=== PATIENT | male | born 1930 | race Caucasian/White ===

== ENCOUNTER → 2016-10-25 | Outpatient (CLI) | payer MEDICARE ==
[~2016-10-25] MED LIST: ACET-1256 PO; AMIT25TA19 PO; AMT50 PO; ASPI-232 PO; ATEN-173 PO; BIOTPOW17 PO; CEFD300C2 PO; CLC/300 PO; DOCU100C31 PO; DUTACAP PO; FINA5TAB PO; FINA5TAB4 PO; FLM4 PO; GLC/500 PO; IBUP-1459 PO; ISOS30TA3 PO; LCTX PO; MULT-506 PO; OMEP20CA59 PO; OXGN; OXYC-57 PO; PHEN-775 PO; TNR25 PO; ZCRT/40 PO
[2016-10-25 13:08] LABS: ESTIMATED AVERAGE GLUCOSE 146 mg/dl; HA1C FLAG Normal (Normal)
[2016-10-25 13:20] LABS: BLOOD UREA NITROGEN 28 mg/dl (7-18); BUN/CREATININE RATIO 23.5 (10-20); CALCIUM 9.3 mg/dl (8.5-10.1); CARBON DIOXIDE 27 mmol/L (21-32); CHLORIDE 108 mmol/L (98-107); GLUCOSE 107 mg/dl (70-99); POTASSIUM 4.4 mmol/L (3.5-5.1); SODIUM 140 mmol/L (136-145)
== END | disposition home or self-care (01) ==
LOC: C.LAB1850 11:35
PROVIDERS: ATTEND Internal Medicine
DX: E11.9 Type 2 diabetes mellitus without complications (principal)

== ENCOUNTER → 2017-01-26 | Outpatient (CLI) | payer MEDICARE ==
[~2017-01-26] MED LIST changes: -ACET-1256 PO; -AMT50 PO; -ATEN-173 PO; -BIOTPOW17 PO; -CEFD300C2 PO; -DUTACAP PO; -FINA5TAB4 PO; -GLC/500 PO; -MULT-506 PO; -OXGN; -OXYC-57 PO; -PHEN-775 PO
[2017-01-26 14:42] LABS: HEMATOCRIT 43.3 % (42-52); MEAN CELL VOLUME 95.2 fL (80-100); MEAN CORPUSCULAR HEMOGLOBIN 30.3 pg (25-34); MEAN CORPUSCULAR HGB CONC 31.9 g/dl (32-36); MEAN PLATELET VOLUME 10.6 fL (7.4-10.4); PLATELET COUNT 221 K/uL (130-400); RED BLOOD COUNT 4.55 M/uL (4.7-6.1); WHITE BLOOD COUNT 6.16 K/uL (4.8-10.8)
[2017-01-26 15:12] LABS: ALT/SGPT 33 U/L (12-78); AST/SGOT 21 U/L (15-37); BLOOD UREA NITROGEN 28 mg/dl (7-18); BUN/CREATININE RATIO 23.7 (10-20); CALCIUM 9.2 mg/dl (8.5-10.1); CARBON DIOXIDE 27 mmol/L (21-32); CHLORIDE 109 mmol/L (98-107); GLUCOSE 102 mg/dl (70-99); GLUCOSE,FASTING 102 mg/dl (70-99); POTASSIUM 5.3 mmol/L (3.5-5.1); SODIUM 140 mmol/L (136-145)
[2017-01-26 15:23] LABS: CHOLESTEROL 164 mg/dl (0-200); CHOLESTEROL/HDL RATIO 3.5; HDL CHOLESTEROL 47 mg/dl; LDL CHOLESTEROL CALCULATED 97 mg/dl; TRIGLYCERIDES 98 mg/dl (0-150); VERY LOW DENSITY LIPOPROT CALC 20 mg/dl
[2017-01-27 07:56] LABS: ESTIMATED AVERAGE GLUCOSE 143 mg/dl; HA1C FLAG Normal (Normal)
== END | disposition home or self-care (01) ==
LOC: C.LAB 12:15
PROVIDERS: ATTEND Internal Medicine
DX: E11.40 Type 2 diabetes mellitus with diabetic neuropathy, unspecified (principal); I25.10 Atherosclerotic heart disease of native coronary artery without angina pectoris; M62.81 Muscle weakness (generalized); E78.5 Hyperlipidemia, unspecified; R31.0 Gross hematuria

== ENCOUNTER 2017-04-13 15:31 | Emergency (ER) | payer MEDICARE, OTHER ==
[~2017-04-13] VITALS: Ht 170.2 cm; Wt 63.0 kg
[2017-04-13 15:35] VITALS: TEMP 36.5; Ht 170.2 cm; Wt 63.0 kg
[2017-04-13 16:24] LABS: URINE APPEARANCE CLOUDY (CLEAR); URINE BILIRUBIN NEG (NEG); URINE COLOR YELLOW; URINE EPITHELIAL CELL AUTO >30 /lpf (0-5); URINE NITRITE POS (NEG); URINE PH 7.5 (4.5-7.5); URINE SPECIFIC GRAVITY 1.011 (1.000-1.030); UROBILINOGEN NEG (NEG); ZZURINE CULT IF INDIC CATH YES
[2017-04-13 16:26] LABS: MANUAL MICROSCOPIC REQUIRED? NO; REVIEW REQ? YES
[2017-04-13 16:27] LABS: SULFASALICYLIC ACID POS (NEG)
[2017-04-13] MEDS ORDERED: CEFDINIR 300 MG CAP PO STA (16:32)
[2017-04-13] MEDS ORDERED: CEFD300C2 PO (16:34)
--- NOTE | 2017-04-13 16:40 | EMERGENCY ROOM VISIT NOTE ---
History Report prepared by Rena: Monster Guerrero Under the Supervision of: Dr. Luke Martinez D.O. First contact with patient: 15:38 Chief Complaint: CATHETER REPLACEMENT Stated Complaint: CATHETER NEEDS REMOVED History of Present Illness The patient is a 86 year old male who presents to the Emergency Room with complaints of constant catheter problems beginning today. He has a suprapubic catheter in place. He states that he was supposed to have the catheter changed today, but his home health nurse was unable to remove the catheter entirely. The patient denies any chest pain, SOB, fevers, or chills. Source of History: patient Onset: Today Quality: other (catheter problems) Timing: constant Associated Symptoms: No fevers, No chills, No chest pain, No SOB Review of Systems See HPI for pertinent positives & negatives. A total of 10 systems reviewed and were otherwise negative. Past Medical & Surgical Medical Problems: (1) Abscess (2) CAD (coronary artery disease) (3) Chest pain (4) Diabetes (5) PNA (pneumonia) (6) PNA (pneumonia) (7) PNA (pneumonia) Family History No pertinent family history stated. Social History Smoking Status: Former Smoker Alcohol Use: none Drug Use: none Marital Status: Housing Status: lives with family Occupation Status: retired Current/Historical Medications Scheduled Amitriptyline Hcl (Elavil), 50 MG PO HS Aspirin (Aspir-81), 81 MG PO DAILY Atenolol (Tenormin), 25 MG PO QAM Cefdinir (Omnicef), 300 MG PO Q12H Isosorbide Mononitrate Ext Rel (Imdur Ext Rel), 30 MG PO QAM Metformin Hcl (Glucophage), 500 MG PO BID Omeprazole (Prilosec), 20 MG PO DAILY Allergies Coded Allergies: No Known Allergies (Unverified , 04/13/17) Physical Exam Vital Signs Date Time Temp Pulse Resp B/P (MAP) Pulse Ox O2 Delivery O2 Flow Rate FiO2 04/13/17 17:01 63 16 122/65 97 Room Air 04/13/17 15:35 36.5 92 20 125/76 99 Room Air Physical Exam GENERAL: Patient is awake, alert, and in no acute distress. Patient is resting comfortably and showing no signs of anxiety EYES: The conjunctivae are clear. The pupils are round and reactive. EARS, NOSE, MOUTH AND THROAT: The nose is without any evidence of any deformity. Mucous membranes are moist tongue is midline NECK: The neck is nontender and supple. RESPIRATORY: Normal respiratory effort is noted there is no evidence of wheezing rhonchi or rales CARDIOVASCULAR: Regular rate and rhythm noted there no murmurs rubs or gallops normal S1 normal S2 GASTROINTESTINAL: Mildly distended but soft. Suprapubic catheter in place. MUSCULOSKELETAL/EXTREMITIES: There is no evidence of gross deformity full range of motion is noted in the hips and shoulders SKIN: There is no obvious evidence of any rash. There are no petechiae, pallor or cyanosis noted. NEUROLOGIC: Patient is awake alert and oriented x3. Medical Decision & Procedures Laboratory Results Test 04/13/17 16:05 Urine Color YELLOW Urine Appearance CLOUDY (CLEAR) Urine pH 7.5 (4.5-7.5) Urine Specific [place] 1.011 (1.000-1.030) Urine Protein 1+ (NEG) Urine Glucose (UA) NEG (NEG) Urine Ketones NEG (NEG) Urine Occult Blood 3+ (NEG) Urine Nitrite POS (NEG) Urine Bilirubin NEG (NEG) Urine Urobilinogen NEG (NEG) Urine Leukocyte Esterase LARGE (NEG) Urine WBC (Auto) >30 /hpf (0-5) Urine RBC (Auto) 10-30 /hpf (0-4) Urine Hyaline Casts (Auto) 1-5 /lpf (0-5) Urine Epithelial Cells (Auto) >30 /lpf (0-5) Urine Bacteria (Auto) 4+ (NEG) Urine Pathogenic Casts /lpf (0) Laboratory results per my review. Medications Administered Medications (Trade) Dose Ordered Sig/Taylor Route Start Time Stop Time Status Last Admin Dose Admin Cefdinir (Omnicef Cap) 300 mg ONE STAT PO 04/13/17 16:32 04/13/17 16:33 DC 04/13/17 17:00 300 MG ED Course 1544: The patient was evaluated in room B3B. A complete history and physical examination were performed. 163: Ordered Omnicef Susp 300 mg PO. 1635: Upon reevaluation, the patient is resting comfortably. I discussed the results and treatment plan with him. He verbalized agreement of the treatment plan. The patient was discharged home. Medical Decision Differential diagnosis: Etiologies such as renal colic, appendicitis, diverticulitis, mesenteric ischemia, aortic pathology, infections, inflammatory bowel disease, PUD, biliary pathology, UTI, as well as others were entertained. Nursing notes reviewed. The patient is an 86-year-old male who presented to the emergency department for an evaluation of malfunctioning suprapubic [place] catheter. The patient has to catheter changed monthly but the visiting nurse was unable to change the catheter today. The balloon appeared to be empty but there were significant increase in his on the end of the [place]. Eventually I was able to remove the [place] catheter and a new catheter was replaced but the urine was cloudy in appearance. This was sent for urinalysis and culture. The patient was started on Omnicef. I discussed the patient's laboratory results with him. He has a follow-up appointment with Dr. Lion next week. He was encouraged to keep this appointment. I reviewed the patient's previous cultures however he has not had a recent urine culture that grew out definite organism the last few years. He was encouraged to drink plenty clear liquids and return to the emergency apartment immediately if symptoms change worsen or the need arises. Medication Reconcilliation Current Medication List: was personally reviewed by me Blood Pressure Screening Patient's blood pressure: Normal blood pressure Blood pressure disposition: Did not require urgent referral Impression Primary Impression: Suprapubic catheter Additional Impression: UTI (urinary tract infection) Scribe Attestation The scribe's documentation has been prepared under my direction and personally reviewed by me in its entirety. I confirm that the note above accurately reflects all work, treatment, procedures, and medical decision making performed by me. Departure Information Dispostion Home / Self-Care Prescriptions Cefdinir (OMNICEF) 300 Mg Cap 300 MG PO Q12H, #14 CAP Prov: Luke Martinez, DO 04/13/17 Referrals Luke Javier M.D. (PCP) Forms HOME CARE DOCUMENTATION FORM, IMPORTANT VISIT INFORMATION Patient Instructions Catheter Suprapubic Care Josh, My [facility], Urinary Tract Infecs Men Additional Instructions Continue all medications as prescribed. Call your family to schedule a follow-up appointment as soon as possible. Return to the emergency department immediately if symptoms change worsen or if the need arises. Problem Qualifiers Additional Impression: UTI (urinary tract infection) Urinary tract infection type: catheter-associated UTI Indwelling urinary catheter type: indwelling urethral catheter Encounter type: initial encounter Qualified Codes: T83.511A - Infection and inflammatory reaction due to indwelling urethral catheter, initial encounter; N39.0 - Urinary tract infection, site not specified
[2017-04-13] MEDS ORDERED: AMT50 PO (16:49)
[2017-04-13] MEDS ORDERED: GLC/500 PO (16:49)
[2017-04-13] MEDS ORDERED: ATEN-173 PO (16:49)
[2017-04-13 17:01] VITALS: BP 122/65; PULSE 63; O2SAT 97
== END 2017-04-13 17:02 | disposition home or self-care (01) ==
LOC: C.EDB 15:34
DX: T83.511A Infection and inflammatory reaction due to indwelling urethral catheter, initial encounter (principal); N39.0 Urinary tract infection, site not specified; I25.10 Atherosclerotic heart disease of native coronary artery without angina pectoris; E11.9 Type 2 diabetes mellitus without complications; Z79.82 Long term (current) use of aspirin; Z79.84 Long term (current) use of oral hypoglycemic drugs; Y84.6 Urinary catheterization as the cause of abnormal reaction of the patient, or of later complication, without mention of misadventure at the time of the procedure; Z87.891 Personal history of nicotine dependence

== ENCOUNTER → 2017-05-09 | Outpatient (CLI) | payer OTHER ==
[~2017-05-09] MED LIST changes: +ACET-1256 PO; -AMIT25TA19 PO; +AMT50 PO; +ATEN-173 PO; +BIOTPOW17 PO; -CLC/300 PO; -DOCU100C31 PO; +DUTACAP PO; -FINA5TAB PO; +FINA5TAB4 PO; -FLM4 PO; +GLC/500 PO; -IBUP-1459 PO; -LCTX PO; +MULT-506 PO; +OXGN; -TNR25 PO; -ZCRT/40 PO
== END | disposition home or self-care (01) ==
LOC: C.LABSPEC 17:27
PROVIDERS: ATTEND Urology
DX: N39.0 Urinary tract infection, site not specified (principal)

== ENCOUNTER → 2017-05-21 | Day surgery (SDC) | payer OTHER ==
[2017-05-09 13:52] VITALS: BMI 23.0
--- NOTE | 2017-05-09 14:30 | PAT Medication Instructions ---
Service Date May 09, 2017. Current Home Medication List Acetaminophen (Tylenol), 500 MG PO PRN Amitriptyline Hcl (Elavil), 50 MG PO HS Aspirin (Aspir-81), 81 MG PO QPM Atenolol (Tenormin), 25 MG PO QAM Dutasteride-Tamsulosin Hcl (Jennifer), 1 CAP PO HS Finasteride (Proscar), 5 MG PO QPM Home O2 Therapy (Oxygen), 2 LITERS NA PRN Isosorbide Mononitrate Ext Rel (Imdur Ext Rel), 30 MG PO QAM Metformin Hcl (Glucophage), 500 MG PO BID Multivitamin (Multivitamin), 1 TAB PO HS Omeprazole (Prilosec), 20 MG PO HS [Biotin], 1 TAB PO QAM Medication Instructions For Your Scheduled Surgery -Follow your surgeon's instructins for: Aspirin (Aspir-81), 81 MG PO QPM -Continue as directed: Home O2 Therapy (Oxygen), 2 LITERS NA PRN - Hold the following medications 48 hours prior to surgery: Metformin Hcl (Glucophage), 500 MG PO BID - Hold the following medications the morning of surgery: [Biotin], 1 TAB PO QAM - Take the following medications the morning of surgery with a sip of water: Isosorbide Mononitrate Ext Rel (Imdur Ext Rel), 30 MG PO QAM Atenolol (Tenormin), 25 MG PO QAM Acetaminophen (Tylenol), 500 MG PO PRN (if needed, can be taken up to four hours before surgery) - Take the following medications as scheduled the night before surgery: Multivitamin (Multivitamin), 1 TAB PO HS Omeprazole (Prilosec), 20 MG PO HS Finasteride (Proscar), 5 MG PO QPM Dutasteride-Tamsulosin Hcl (Jnenifer), 1 CAP PO HS Amitriptyline Hcl (Elavil), 50 MG PO HS Acetaminophen (Tylenol), 500 MG PO PRN (if needed) If you have any questions please call us at [phone] or [phone] or [phone]
[2017-05-09 15:40] LABS: BASO % 0.9 %; BASO ABS # 0.05 K/uL (0-0.2); COMPLETE YES; HEMATOCRIT 38.3 % (42-52); IG% 0.4 %; LYMPH % 24.1 %; LYMPH ABS # 1.34 K/uL (1.2-3.4); MEAN CELL VOLUME 96.2 fL (80-100); MEAN CORPUSCULAR HEMOGLOBIN 31.7 pg (25-34); MEAN CORPUSCULAR HGB CONC 32.9 g/dl (32-36); MEAN PLATELET VOLUME 10.1 fL (7.4-10.4); MONO % 8.3 %; NEUT % 61.3 %; PLATELET COUNT 184 K/uL (130-400); RED BLOOD COUNT 3.98 M/uL (4.7-6.1); WHITE BLOOD COUNT 5.56 K/uL (4.8-10.8)
--- NOTE | 2017-05-09 15:47 | DIAGNOSTIC IMAGING REPORT ---
CHEST 2 VIEWS ROUTINE CLINICAL HISTORY: Preoperative chest COMPARISON STUDY: 09/30/2013 FINDINGS: The heart is normal in size. There is a large retrocardiac opacity containing air and fluid. This is consistent with a hiatal hernia.[ There is no focal pulmonary consolidation. There is no failure. There are no pleural effusions. IMPRESSION: Large hiatal hernia. No acute findings. Electronically signed by: Samuel Webb M.D. 05/09/2017 3:45 PM Dictated Date/Time: 05/09/2017 3:44 PM
[2017-05-09 15:52] LABS: BUN/CREATININE RATIO 21.4 (10-20); CALCIUM 9.2 mg/dl (8.5-10.1); CREATININE 1.07 mg/dl (0.60-1.40)
[2017-05-09 15:56] LABS: PROSTATE SPECIFIC ANTIGEN 5.26 ng/ml (0.000-4.000)
[2017-05-09 16:06] LABS: URINE APPEARANCE TURBID (CLEAR); URINE BILIRUBIN NEG (NEG); URINE COLOR YELLOW; URINE EPITHELIAL CELL AUTO 20-30 /lpf (0-5); URINE NITRITE NEG (NEG); URINE PH 6.5 (4.5-7.5); UROBILINOGEN NEG (NEG)
[2017-05-09 16:11] LABS: MANUAL MICROSCOPIC REQUIRED? NO; REVIEW REQ? NO
[~2017-05-21] VITALS: Ht 165.1 cm; Wt 62.7 kg
[~2017-05-21] MED LIST changes: +ATROPINE SULFATE 0.1 MG/ML 5ML SYR IV PRN; +CIPROFLOXACIN / D5W 400 MG IV SCH; +DEXAMETHASONE SOD INJ 4 MG/ML VIAL ONE; +EpHEDrine SULFATE 50MG/5ML SYR ONE; +EpHEDrine SULFATE INJ 50 MG/ML AMP IV PRN; +FENTANYL CITRATE INJ 50 MCG/1 ML 2 ML VIAL IV PRN; +FENTANYL CITRATE INJ 50 MCG/1 ML 2 ML VIAL ONE; +GENTAMICIN INJ 120 MG in DEXTROSE 5% 100ML 100 ML IV SCH; +HYDROmorphone INJ 1 MG/ML SYR IV PRN; +LABETALOL HCL IV 5 MG/ML 20ML IV PRN; +LACTATED RINGER'S 1000ML 1,000 ML IV SCH; +LIDOCAINE HCL 2% 2 ML VIAL (20MG/ML) ONE; +MEPERIDINE HCL 25 MG/ML CARP IV PRN; +MIDAZOLAM HCL 1 MG/ML 2ML VIAL ONE; +NURSING VERBAL MED ORDER ONE; +ONDANSETRON INJ 2 MG/ML 2 ML VIAL IV PRN; +ONDANSETRON INJ 2 MG/ML 2 ML VIAL ONE; +OXYC-57 PO; +OXYCODONE/ACETAMINOPHEN 5-325 TAB PO PRN; +PHEN-775 PO; +PHENYLEPHRINE 100MCG/ML 5ML SYR ONE; +PROPOFOL IV EMULSION 10 MG/ML 20 ML VIAL IV ONE
[2017-05-21 07:35] VITALS: BP 153/72; PULSE 60; TEMP 36.5; O2SAT 98; Ht 165.1 cm; Wt 62.7 kg
--- NOTE | 2017-05-21 08:31 | History & Physical Bridge Note ---
H&P Re-Evaluation Bridge Note: I have examined the patient, reviewed the History & Physical and in the interval since the performance of the History & Physical I have noted the following changes of clinical significance: No changes noted
--- NOTE | 2017-05-21 10:11 | Discharge Instructions ---
Discharge Instructions Date of Service May 21, 2017. Admission Reason for Admission: Urinary Retention Discharge Discharge Diagnosis / Problem: BPH, retention, indwelling SPT Discharge Goals Goal(s): Improve function, Therapeutic intervention Activity Recommendations Activity Limitations: as noted below Lifting Limitations: no more than 25 pounds, gradually increase as tolerated Exercise/Sports Limitations: rest today, gradually increase as tolerated May Resume Sexual Activity: when tolerated Shower/Bathe: no limitations Driving or Machine Use: resume 1 day after discharge . Instructions / Follow-Up Instructions / Follow-Up Suprapubic tube to gravity drainage x 2 days, then OK to cap. Follow-up in office as planned for removal of suprapubic tube. Current Hospital Diet Patient's current hospital diet: Discharge Diet Recommended Diet: Regular Diet (good fluid intake) Procedures Procedures Performed: Cystoscopy; Greenlight Transurethral vaporization of Prostate; suprapubic tube exchange; extraction of foreign body; laser cystolithopaxy Pending Studies Studies pending at discharge: no Medical Emergencies . Who to Call and When: Medical Emergencies: If at any time you feel your situation is an emergency, please call 911 immediately. . Non-Emergent Contact Non-Emergency issues call your: Urologist Call Non-Emergent contact if: you have a fever, temperature is above 101, your pain is not controlled, your pain is worsening, your pain is unusual for you, your pain is concerning you, you have any medication questions . . "Provider Documentation" section prepared by Maciel Lion. . VTE Core Measure Inpt VTE Proph given/why not?: SCD's [place] Drug Monitoring Program Search Results: patient reviewed within database, no issues identified
--- NOTE | 2017-05-21 10:13 | [facility] Post Operative Brief Note ---
Immediate Operative Summary Operative Date May 21, 2017. Pre-Operative Diagnosis Benign Prostactic Hyperplasia Post-Operative Diagnosis Benign Prostactic Hyperplasia, Bladder Stone, Indwelling sepulveda fragment Procedure(s) Performed Cystoscopy; Greenlight Transurethral vaporization of Prostate; suprapubic tube exchange; extraction of foreign body; laser cystolithopaxy Surgeon Dr. Kamar Lion Transplant Case Manager Surgeon(s) NA Estimated Blood Loss 10mL Findings Thick bladder stone with sepulveda fragment at center, R bladder diverticulum, open fossa after GLTURP with excellent hemostasis. Specimens A: Foreign body Drains [address], 10 cc H2O Anesthesia GALMA Complication(s) None Disposition Recovery Room / PACU
--- NOTE | 2017-05-21 10:20 | [facility] Operative Report ---
Operative Report Operative Date May 21, 2017. Pre-Operative Diagnosis Benign Prostactic Hyperplasia Post-Operative Diagnosis Benign Prostactic Hyperplasia, Bladder Stone, Indwelling sepulveda fragment Procedure(s) Performed Cystoscopy; Greenlight Transurethral vaporization of Prostate; suprapubic tube exchange; extraction of foreign body; laser cystolithopaxy Surgeon Dr. Kamar Lion Medical Screener Surgeon(s) NA Estimated Blood Loss 10mL Findings Thick bladder stone with sepulveda fragment at center, R bladder diverticulum, open fossa after GLTURP for 55K J with excellent hemostasis. Specimens A: Foreign body Drains [address], 10 cc H2O Anesthesia GALMA Complication(s) None Disposition Recovery Room / PACU Indications 86-year-old male with an indwelling SP tube for over a year is here today for greenlight TURP to see if this can't be removed. He has suffered with recurrent UTIs and suprapubic tube malfunction like to have this out. Please see H&P for further details. He is being treated preoperatively with ciprofloxacin for positive urine culture is double covered intravenously today with ciprofloxacin and gentamicin. SCDs used for DVT prophylaxis. Description of Procedure Patient was properly identified and brought into the operating room after identification of appropriate consent of the chart. General anesthesia with laryngeal mask was initiated and patient was prepped and draped in the standard fashion for this procedure. Full timeout procedure was followed. Greenlight laser resectoscope was passed into the bladder under direct visualization bladder was surveyed in its entirety. This demonstrated a right-sided bladder diverticulum and pieces of stone material which had apparently formed on the Sepulveda balloon previously free-floating within the bladder. However, not appreciated in the office cystoscopy, 1 larger piece of stone which was thicker and not amenable to flushing out of the scope was appreciated. Seen to the patient's suprapubic tube had not been recently changed a fresh 16 [place] tube was placed into the bladder easily without resistance of 10 mL of sterile water in the balloon. This was used to drain the bladder throughout the case. Good position through the existing tract was appreciated at the time of intraoperative bladder evaluation. Using a side fire greenlight laser resectoscope circumferential vaporization of the prostate tissue was performed. Evidence of prior TURP at the level of the bladder neck was appreciated. Ureteral orifices were not well identified and the bladder neck was noted to be open so no incisions were made at the 5 and 7 o'clock position. The bladder neck was however split in the midline at the 6 o'clock position to allow for this to be further opened. Care was taken avoid any dissection distal to the verumontanum. After this was complete the prostate was noted to be well opened with excellent hemostasis. A 22 [place] cystoscope was reintroduced into the bladder and stone fragments were broken into smaller pieces using dusting settings on a 400 laser fiber. Within the larger piece became clear that a fragment from the tip of the previous suprapubic tube at the time of exchange was present. Suprapubic tube that was placed at the time of surgery today was noted to be intact as was the tube that was removed. Smaller fragments of stone were irrigated free using a Rickie syringe until no significant fragments remained. Cystoscope was removed and suprapubic tube was placed to gravity drainage. Anesthesia was a first and patient was transferred to the recovery room in stable condition. Follow-up care: Patient is to complete his course of ciprofloxacin. He is provided with a prescription for Pyridium and Percocet for postoperative analgesia. Postoperative appointment for suprapubic tube removal was confirmed. Patient is to resume clamping his suprapubic tube as is his current routine prior to follow-up in the office as an outpatient trial of void. I attest to the content of the Intraoperative Record and any orders documented therein. Any exceptions are noted below.
--- NOTE | 2017-05-21 10:34 | Anesthesiology Progress Note ---
Anesthesia Post Op Note Date & Time May 21, 2017 at 10:34 Vital Signs Pain Intensity: 0 Vital Signs Past 12 Hours Date Time Temp Pulse Resp B/P (MAP) Pulse Ox O2 Delivery O2 Flow Rate FiO2 05/21/17 10:25 65 16 172/78 98 Oxymask 3 05/21/17 10:15 67 16 186/87 100 Oxymask 5 05/21/17 10:06 36.0 65 16 175/88 98 Oxymask 10 05/21/17 07:35 36.5 60 18 153/72 (99) 98 Room Air Notes Mental Status: alert / awake / arousable, participated in evaluation Pt Amnestic to Procedure: Yes Nausea / Vomiting: adequately controlled Pain: adequately controlled Airway Patency, RR, SpO2: stable & adequate BP & HR: stable & adequate Hydration State: stable & adequate Anesthetic Complications: no major complications apparent
[2017-05-21 11:05] VITALS: BP 153/73; PULSE 70; TEMP 36.1; O2SAT 97
[2017-05-21 11:35] VITALS: BP 144/63; PULSE 77; TEMP 36.1; O2SAT 97
[2017-05-21 12:05] VITALS: BP 143/65; PULSE 77; TEMP 36.1; O2SAT 97
== END | disposition home or self-care (01) ==
LOC: C.ACU 07:01
PROVIDERS: ATTEND Urology
DX: N40.1 Benign prostatic hyperplasia with lower urinary tract symptoms (principal); N21.0 Calculus in bladder; K57.92 Diverticulitis of intestine, part unspecified, without perforation or abscess without bleeding; R91.8 Other nonspecific abnormal finding of lung field; I35.1 Nonrheumatic aortic (valve) insufficiency; K22.70 Barrett's esophagus without dysplasia; I25.10 Atherosclerotic heart disease of native coronary artery without angina pectoris; E11.40 Type 2 diabetes mellitus with diabetic neuropathy, unspecified; E78.5 Hyperlipidemia, unspecified; E87.5 Hyperkalemia; I34.0 Nonrheumatic mitral (valve) insufficiency; N39.0 Urinary tract infection, site not specified; Z79.899 Other long term (current) drug therapy

== ENCOUNTER → 2017-08-15 | Outpatient (CLI) | payer OTHER ==
[~2017-08-15] MED LIST changes: -ATROPINE SULFATE 0.1 MG/ML 5ML SYR IV PRN; -CIPROFLOXACIN / D5W 400 MG IV SCH; -DEXAMETHASONE SOD INJ 4 MG/ML VIAL ONE; -EpHEDrine SULFATE 50MG/5ML SYR ONE; -EpHEDrine SULFATE INJ 50 MG/ML AMP IV PRN; -FENTANYL CITRATE INJ 50 MCG/1 ML 2 ML VIAL IV PRN; -FENTANYL CITRATE INJ 50 MCG/1 ML 2 ML VIAL ONE; -GENTAMICIN INJ 120 MG in DEXTROSE 5% 100ML 100 ML IV SCH; -HYDROmorphone INJ 1 MG/ML SYR IV PRN; -LABETALOL HCL IV 5 MG/ML 20ML IV PRN; -LACTATED RINGER'S 1000ML 1,000 ML IV SCH; -LIDOCAINE HCL 2% 2 ML VIAL (20MG/ML) ONE; -MEPERIDINE HCL 25 MG/ML CARP IV PRN; -MIDAZOLAM HCL 1 MG/ML 2ML VIAL ONE; -NURSING VERBAL MED ORDER ONE; -ONDANSETRON INJ 2 MG/ML 2 ML VIAL IV PRN; -ONDANSETRON INJ 2 MG/ML 2 ML VIAL ONE; -OXYCODONE/ACETAMINOPHEN 5-325 TAB PO PRN; -PHEN-775 PO; -PHENYLEPHRINE 100MCG/ML 5ML SYR ONE; -PROPOFOL IV EMULSION 10 MG/ML 20 ML VIAL IV ONE
== END | disposition home or self-care (01) ==
LOC: C.LABSPEC 17:17
PROVIDERS: ATTEND Urology
DX: N40.0 Benign prostatic hyperplasia without lower urinary tract symptoms (principal); N21.0 Calculus in bladder

== ENCOUNTER 2017-10-02 10:54 | Inpatient (IN) | payer OTHER ==
[~2017-10-02] VITALS: Ht 162.6 cm; Wt 61.1 kg
[2017-10-02 15:50] VITALS: BP 120/55; PULSE 72; TEMP 36.6; O2SAT 94
[2017-10-02] MEDS ORDERED: DEXTROSE 50% 50 ML SYR IV PRN (16:00)
[2017-10-02] MEDS ORDERED: HEPARIN SOD 5000 UNIT/0.5 ML CARP SQ SCH (16:00)
[2017-10-02] MEDS ORDERED: PIPERACILL/TAZOBAC CONSULT ACTIVE PRN (16:00)
[2017-10-02] MEDS ORDERED: VANCOMYCIN CONSULT ACTIVE PRN (16:00)
[2017-10-02] MEDS ORDERED: OXYCODONE/ACETAMINOPHEN 5-325 TAB PO PRN (16:00)
[2017-10-02] MEDS ORDERED: GLUCAGON FOR INJ 1 MG VIAL SQ PRN (16:00)
[2017-10-02] MEDS ORDERED: GLUCOSE 10 TABS/TUBE PO PRN (16:00)
[2017-10-02] MEDS ORDERED: ACETAMINOPHEN 325 MG TAB PO PRN (16:00)
[2017-10-02] MEDS ORDERED: GLUCOSE 40% GEL 15 GM TUBE PO PRN (16:00)
[2017-10-02] MEDS ORDERED: ONDANSETRON INJ 2 MG/ML 2 ML VIAL IV PRN (16:00)
[2017-10-02] MEDS ORDERED: PATIENT'S HEIGHT AND/OR WEIGHT NEEDED SCH ×2 (16:15→18:45)
[2017-10-02] MEDS ORDERED: PIPERACILL/TAZOBAC IV 3.375 GM in DEXTROSE 5% 100ML 100 ML IV ONE (16:30)
[2017-10-02] MEDS: INSULIN ASPART 100 UNITS/ML 3 ML PEN SC SCH ×3 (16:30→20:22)
[2017-10-02 16:46] LABS: INR 1.1 (0.9-1.1)
--- NOTE | 2017-10-02 17:03 | History and Physical ---
History & Physical Date & Time of Service: Oct 02, 2017 at 16:51 Chief Complaint: Uti, Abscess Primary Care Physician: Luke Javier M.D. History of Present Illness Source: patient 87 y/o M who was transferred here from [facility] for UTI and abscess. Pt had a suprapubic catheter in place for over a year due to urinary retention issues. Dr. Lion d/c'd this about 3 weeks ago. Pt felt he was doing pretty well with this. He was able to urinate regularly, although he did have a bit of retention s/p void that would usually require a second void shortly after. He was doing so well that he next f/u appt was supposed to be in November. Yesterday was a usual day for him. He went to bed but then woke up around 1am with lower abd pain. This persisted so he went to the ED at [facility] where a CT AP revealed that pt has an abscess along the suprapubic catheter tract and UA suggested UTI. Pt has no concerns otherwise. He has been tolerating PO without issue. Pt denies fever, SOB, chest pain, n/v/c/d, LE pain or swelling. Pt still has some abd pain, but feels it is better s/p abx. Pt does say that he takes prophylactic abx. Past Medical/Surgical History Medical Problems: (1) Abscess (2) BROKEN PROSTHETIC JOINT IMPLANT (3) CAD (coronary artery disease) (4) Chest pain (5) Diabetes (6) PNA (pneumonia) (7) PNA (pneumonia) (8) PNA (pneumonia) (9) Skin abscess (10) Suprapubic catheter (11) UTI (urinary tract infection) (12) UTI (urinary tract infection) HTN Hx of cath, no stent placed s/p KS HTN GERD Hyperlipidemia Family History CAD, HTN, DM Social History Smoking Status: Former Smoker (quit at 57 y/o) Alcohol Use: occasionally (rare) Drug Use: none Marital Status: Housing status: lives with family Occupational Status: retired Immunizations History of Influenza Vaccine: Yes History of Tetanus Vaccine?: Yes History of Pneumococcal: Yes History of Hepatitis B Vaccine: No Allergies Coded Allergies: No Known Allergies (Verified , 05/21/17) Home Medications Scheduled Acetaminophen (Tylenol), 500 MG PO PRN Amitriptyline Hcl (Elavil), 50 MG PO HS Aspirin (Aspir-81), 81 MG PO QPM Atenolol (Tenormin), 25 MG PO QAM Dutasteride-Tamsulosin Hcl (Jennifer), 1 CAP PO HS Finasteride (Proscar), 5 MG PO QPM Home O2 Therapy (Oxygen), 2 LITERS NA PRN Isosorbide Mononitrate Ext Rel (Imdur Ext Rel), 30 MG PO QAM Metformin Hcl (Glucophage), 500 MG PO BID Multivitamin (Multivitamin), 1 TAB PO HS Omeprazole (Prilosec), 20 MG PO HS [Biotin], 1 TAB PO QAM Scheduled PRN Oxycodone/Acetaminophen 5MG/325MG (Percocet 5MG/325MG), 1 TABLET PO Q4H PRN for Pain Review of Systems Pertinent positives and negatives reviewed in HPI--all others negative Physical Exam Vital Signs Date Time Temp Pulse Resp B/P (MAP) Pulse Ox O2 Delivery O2 Flow Rate FiO2 10/02/17 15:50 36.6 72 20 120/55 (76) 94 Room Air General Appearance: WD/WN, no apparent distress Head: normocephalic, atraumatic Eyes: normal inspection, sclerae normal Respiratory/Chest: normal breath sounds, no respiratory distress Cardiovascular: regular rate, rhythm, no edema Abdomen/GI: soft, + tenderness (lower abd, mild) Extremities/Musculoskelatal: no calf tenderness, no pedal edema Neurologic/Psych: alert, normal mood/affect, oriented x 3 Skin: normal color, warm/dry Diagnostics Laboratory Results Results Past 24 Hours Test 10/02/17 16:25 10/02/17 16:33 Range/Units Prothrombin Time 11.2 9.0-12.0 SECONDS Prothromb Time International Ratio 1.1 0.9-1.1 Bedside Glucose 119 70-99 mg/dl Diagnostic Radiology CT AP as OSH: abscess in suprapubic catheter tract Large hiatal hernia Impression Assessment and Plan 87 y/o M who was transferred here from [facility] on 10/02 for UTI and abscess along suprapubic catheter tract UTI/abscess along suprapubic catheter tract: noted on CT AP from OSH Started on vanco/zosyn Urology c/s pending Urine cx pending Holding aspirin for possible drainage (last dose was PM 10/01) BPH: bladder scans PRN DM: continue home meds HTN/CAD: holding aspirin 81mg as above continue home meds otherwise Other: Full code, is uncertain if he would like prolonged mechanical life support and would defer to his DM diet SCDs for DVT proph given possible procedure Resuscitation Status VTE Prophylaxis Will order VTE Prophylaxis: Yes
--- NOTE | 2017-10-02 17:27 | Pharmacy Progress Note ---
Pharmacy Abx Initial Consult Date of Service Oct 02, 2017. Pharmacy Dosing Scope Date of Consult: 10/02/17 Consultation requested by: Dr. Talbert Pharmacy is consulted to initiate Vancomycin and Zosyn IV dosing therapy, order appropriate labs and adjust drug dose/frequency. Objective Vital Signs (Past 12Hrs) Vital Signs Past 12 Hours Date Time Temp Pulse Resp B/P (MAP) Pulse Ox O2 Delivery O2 Flow Rate FiO2 10/02/17 15:50 36.6 72 20 120/55 (76) 94 Room Air Assessment & Plan Assessment 87 year old male transferred from [facility] with complicated UTI and abscess of the suprapubic catheter tract. Patient has a history of urinary retention and previously had a catheter in place for over a year. Past urine cultures have grown the following organisms: * E.faecalis - gurrola-sensitive (08/15/17) * methicillin resistant coag neg staph (08/15/17) * E.coli and klebsiella oxytoca (04/2017) Plan Vancomycin IV * Loading dose: 1500 mg (25 mg/kg) * Maintenance dose: 1000 mg IV (16.4 mg/kg) every 24 hours * Goal trough level : 15-20 mcg/mL, pending sensitivities * Trough level ordered for 10/05 Piperacillin/tazobactam * 3.375 g bolus administered over 30 minutes, then 3.375 g IV extended infusion every 8 hours for CrCl greater than 20 mL/min Pharmacy will continue to follow and will adjust dose/frequency as necessary. Thank you.
[2017-10-02 19:38] VITALS: BP 120/55; PULSE 72; TEMP 36.6; Ht 162.6 cm; Wt 61.1 kg
[2017-10-02] MEDS ORDERED: VANCOMYCIN IV 1,500 MG in SODIUM CHLORIDE 0.9% 500ML 500 ML IV ONE (20:00)
[2017-10-02] MEDS: AMITRIPTYLINE HCL 50 MG TAB PO SCH (20:22)
[2017-10-02] MEDS: TAMSULOSIN HCL 0.4 MG CAP PO SCH (20:22)
[2017-10-02] MEDS: PANTOprazole SOD 40 MG TAB PO SCH (20:22)
[2017-10-02] MEDS: FINASTERIDE 5 MG TAB PO SCH (20:22)
[2017-10-02] MEDS ORDERED: ASPIRIN 81 MG ECTAB PO SCH (21:00)
[2017-10-02] MEDS: PIPERACILL/TAZOBAC IV 3.375 GM in SODIUM CHLORIDE 0.9% 100ML 100 ML IV SCH (21:21)
[2017-10-02] MEDS ORDERED: PIPERACILL/TAZOBAC IV 3.375 GM in DEXTROSE 5% 100ML 100 ML IV SCH (22:00)
[2017-10-02 22:39] VITALS: BP 129/61; PULSE 73; TEMP 36.6; O2SAT 92
[2017-10-03] MEDS: PIPERACILL/TAZOBAC IV 3.375 GM in SODIUM CHLORIDE 0.9% 100ML 100 ML IV SCH ×3 (05:51→22:56)
[2017-10-03 06:07] LABS: BASO % 0.3 %; BASO ABS # 0.02 K/uL (0-0.2); EOS % 2.8 %; EOS ABS # 0.19 K/uL (0-0.5); HEMATOCRIT 36.6 % (42-52); HEMOGLOBIN 12.4 g/dL (14.0-18.0); IG# 0.01 K/uL (0.00-0.02); LYMPH % 16.9 %; LYMPH ABS # 1.15 K/uL (1.2-3.4); MEAN CELL VOLUME 95.1 fL (80-100); MEAN CORPUSCULAR HEMOGLOBIN 32.2 pg (25-34); MEAN CORPUSCULAR HGB CONC 33.9 g/dl (32-36); MEAN PLATELET VOLUME 10.1 fL (7.4-10.4); MONO % 9.6 %; MONO ABS # 0.65 K/uL (0.11-0.59); NEUT % 70.3 %; NEUT ABS # 4.78 K/uL (1.4-6.5); PLATELET COUNT 173 K/uL (130-400); RED CELL DISTRIBUTION WIDTH CV 14.7 % (11.5-14.5); RED CELL DISTRIBUTION WIDTH SD 50.5 fL (36.4-46.3)
[2017-10-03 06:32] LABS: CALCIUM 8.5 mg/dl (8.5-10.1); CREATININE 1.41 mg/dl (0.60-1.40); POTASSIUM 4.1 mmol/L (3.5-5.1)
[2017-10-03 07:14] VITALS: BP 162/79; PULSE 66; TEMP 36.4; O2SAT 93
[2017-10-03] MEDS ORDERED: VANCOMYCIN TROUGH ONE ×2 (07:30→13:30)
[2017-10-03 08:00] VITALS: O2SAT 93
[2017-10-03] MEDS: ISOSORBIDE MONONITRATE 30 MG TABCR PO SCH (08:03)
[2017-10-03] MEDS: INSULIN ASPART 100 UNITS/ML 3 ML PEN SC SCH ×4 (08:29→20:17)
[2017-10-03] MEDS ORDERED: BISACODYL 10 MG SUPP PR PRN (08:45)
--- NOTE | 2017-10-03 08:45 | Urology Consultation ---
History General Date of Service: Oct 03, 2017. Chief Complaint: Lower abdominal pain, history of BPH Primary Care Physician: Luke Javier M.D. Pt seen a urologist before?: Yes If yes, why?: History of urinary retention and suprapubic tube History of Present Illness 87-year-old male, well-known to myself was in his normal state of health since I have last seen him in the office in July 2017 until yesterday when he developed lower abdominal pain, bothersome which kept him awake at night. Patient describes the pain as a need to defecate but was unable to do so and presented to the emergency room at his 's behest for further evaluation. CT scan of the abdomen and pelvis was done at that time images which are reviewed in the PACS and reviewed personally. This demonstrates a quite impressive hiatal hernia involving the majority of the stomach, the pancreas and the vasculature of the spleen. In the lower abdomen and the cause of the patient's transferred to our facility is a question of an abscess in the space of Retzius with air being present. No clear fluid levels are present. Patient denies fevers, chills, nausea or vomiting prior to his admission. His lower abdominal pain has since improved and he feels that he is return to baseline. His appetite is currently excellent. He has still not moved his bowels. He notes that his voiding was excellent with no hesitancy of stream, foul-smelling urine or hematuria. His suprapubic tube was removed in July [address] for more than a year. This was unable to due to the fact that he underwent a TURP and is able to void adequately. He has been treated for a couple of urinary tract infections as an outpatient, relatively asymptomatic by our service. Urology consultation is sought out to assist with the patient's care. He denies drainage from or redness at his suprapubic site or air within the urinary tract. Imaging Imaging: CT (Scanned into PACS, images personally reviewed) Laboratory Last 24 Hours Test 10/02/17 16:25 10/02/17 16:33 10/02/17 19:45 10/03/17 05:33 Prothrombin Time 11.2 SECONDS Prothromb Time International Ratio 1.1 Creatinine 1.10 mg/dl 1.41 mg/dl Estimated GFR () 69.6 51.5 Estimated GFR (Non- 60.0 44.5 Bedside Glucose 119 mg/dl 105 mg/dl White Blood Count 6.80 K/uL Red Blood Count 3.85 M/uL Hemoglobin 12.4 g/dL Hematocrit 36.6 % Mean Corpuscular Volume 95.1 fL Mean Corpuscular Hemoglobin 32.2 pg Mean Corpuscular Hemoglobin Concent 33.9 g/dl Platelet Count 173 K/uL Mean Platelet Volume 10.1 fL Neutrophils (%) (Auto) 70.3 % Lymphocytes (%) (Auto) 16.9 % Monocytes (%) (Auto) 9.6 % Eosinophils (%) (Auto) 2.8 % Basophils (%) (Auto) 0.3 % Neutrophils # (Auto) 4.78 K/uL Lymphocytes # (Auto) 1.15 K/uL Monocytes # (Auto) 0.65 K/uL Eosinophils # (Auto) 0.19 K/uL Basophils # (Auto) 0.02 K/uL RDW Standard Deviation 50.5 fL RDW Coefficient of Variation 14.7 % Immature Granulocyte % (Auto) 0.1 % Immature Granulocyte # (Auto) 0.01 K/uL Sodium Level 139 mmol/L Potassium Level 4.1 mmol/L Chloride Level 109 mmol/L Carbon Dioxide Level 26 mmol/L Anion Gap 4.0 mmol/L Blood Urea Nitrogen 24 mg/dl Est Creatinine Clear Calc Drug Dose 30.9 ml/min BUN/Creatinine Ratio 16.7 Random Glucose 116 mg/dl Calcium Level 8.5 mg/dl Test 10/03/17 07:36 Bedside Glucose 110 mg/dl Problem List Medical Problems: (1) Suprapubic catheter Status: Acute (2) UTI (urinary tract infection) Status: Acute Past History BPH, coronary artery disease, GERD, high cholesterol, hypertension, kidney stones Past Surgical History: lithotripsy, TKR, other (TURP, history of suprapubic tube) Social History Hx Tobacco Use In Past Year?: No Smoking: quit greater than 1 year Alcohol: never, other Drug use: none Marital status: Housing status: lives with family Occupation status: retired Immunizations History of Influenza Vaccine: Yes History of Tetanus Vaccine?: Yes History of Pneumococcal: Yes History of Hepatitis B Vaccine: No Allergies Coded Allergies: No Known Allergies (Verified , 05/21/17) Medications Home Medications: Home Meds and Scripts Medications Dose Route/Sig Max Daily Dose Days Date Category Dose Instructions Percocet 5MG/325MG (Oxycodone/Acetaminophen) Tab 1 Tablet PO Q4H PRN 05/21/17 Rx Oxygen Gas 2 Liters NA PRN 05/09/17 Reported [Biotin] 1 Tab PO QAM 05/09/17 Reported Multivitamin (Multivitamins) Tab 1 Tab PO HS 05/09/17 Reported Proscar (Finasteride) 5 Mg Tab 5 Mg PO QPM 05/09/17 Reported Jennifer (Dutasteride-Tamsulosin Hcl) 1 Cap Cap 1 Cap PO HS 90 05/09/17 Reported Tylenol (Acetaminophen) 500 Mg Tab 500 Mg PO PRN 05/09/17 Reported Elavil (Amitriptyline HCl) 50 Mg Tab 50 Mg PO HS 04/13/17 Reported Glucophage (Metformin Hcl) 500 Mg Tab 500 Mg PO BID 04/13/17 Reported Tenormin (Atenolol) 25 Mg Tab 25 Mg PO QAM 04/13/17 Reported Imdur Ext Rel (Isosorbide Mononitrate) 30 Mg Ertab 30 Mg PO QAM 01/08/13 Reported Aspir-81 (Aspirin) 81 Mg Tab 81 Mg PO QPM 10/08/12 Reported Restart in 3 days if urine clear Prilosec (Omeprazole) 20 Mg Capcr 20 Mg PO HS 11/28/11 Reported Inpatient Medications: Current Inpatient Medications Medications (Trade) Dose Ordered Sig/Taylor Route Start Time Stop Time Status Last Admin Dose Admin Acetaminophen (Tylenol Tab) 650 mg Q4H PRN PO 10/02/17 16:00 11/01/17 15:59 Polyethylene (Miralax Powder Packet) 17 gm DAILY PRN PO 10/02/17 16:00 11/01/17 15:59 Ondansetron HCl (Zofran Inj) 4 mg Q6H PRN IV 10/02/17 16:00 11/01/17 15:59 Miscellaneous Information (Consult) 1 ea UD PRN N/A 10/02/17 16:00 11/01/17 15:59 Miscellaneous Information (Consult) 1 ea UD PRN N/A 10/02/17 16:00 11/01/17 15:59 Amitriptyline HCl (Elavil Tab) 50 mg HS PO 10/02/17 21:00 11/01/17 20:59 10/02/17 20:22 50 MG Atenolol (Tenormin Tab) 25 mg QAM PO 10/03/17 08:00 11/02/17 08:59 10/03/17 08:03 25 MG Finasteride (Proscar Tab) 5 mg QPM PO 10/02/17 21:00 11/01/17 20:59 10/02/17 20:22 5 MG Isosorbide Mononitrate (Imdur Ext Rel Tab) 30 mg QAM PO 10/03/17 09:00 11/02/17 08:59 10/03/17 08:03 30 MG Oxycodone/ Acetaminophen (Percocet 5-325mg Tab) 1 tab Q4H PRN PO 10/02/17 16:00 10/16/17 15:59 Miscellaneous Information (Order Awaiting Action) 1 ea QS N/A 10/03/17 00:00 11/02/17 00:00 Pantoprazole Sodium (Protonix Tab) 40 mg HS PO 10/02/17 21:00 11/01/17 20:59 10/02/17 20:22 40 MG Insulin Aspart (novoLOG ASPART) SLIDING SCALE G... ACHS SC 10/02/17 16:00 11/01/17 15:59 10/03/17 08:29 6 UNITS Glucose (Glucose 40% Gel) 15-30 GRAMS 15 GRAMS... UD PRN PO 10/02/17 16:00 11/01/17 15:59 Glucose (Glucose Chew Tab) 4-8 Tablets 4 Tabl... UD PRN PO 10/02/17 16:00 11/01/17 15:59 Dextrose (Dextrose 50% 50ML Syringe) 25-50ML OF 50% DW IV FOR... UD PRN IV 10/02/17 16:00 11/01/17 15:59 Glucagon (Glucagon Inj) 1 mg UD PRN SQ 10/02/17 16:00 11/01/17 15:59 Tamsulosin HCl (Flomax Cap) 0.4 mg PM PO 10/02/17 21:00 11/01/17 20:59 10/02/17 20:22 0.4 MG Vancomycin HCl 1000 mg/Sodium Chloride 270 ml @ 125 mls/hr Q24H IV 10/03/17 14:00 10/12/17 13:59 Piperacillin Sod/ Tazobactam Sod 3.375 gm/Sodium Chloride 115 ml @ 28.75 mls/ hr Q8H IV 10/02/17 22:00 10/12/17 16:59 10/03/17 05:51 28.75 MLS/HR Review of Systems Review of Systems Constitutional: No fever, No chills Eyes: No blurred vision, No double vision Neurological: No passing out Endocrine: No too hot, No too cold Gastrointestinal: + abdominal pain (Resolved), No nausea, No vomiting Cardiovascular: No chest pain, No irregular heartbeat Respiratory: No coughing up blood Skin: No boils Musculoskeletal: + arthritis Blood / Lymphatic: No bleed easily Ears / Nose / Throat: No hoarse voice Psychologic / Mental: No nervous Male : + see HPI, No blood in urine Physical Exam Vital Signs: Vital Signs Past 12 Hours Date Time Temp Pulse Resp B/P (MAP) Pulse Ox O2 Delivery O2 Flow Rate FiO2 10/03/17 07:14 36.4 66 19 162/79 (106) 93 Room Air 10/03/17 00:00 Room Air 10/02/17 22:39 36.6 73 18 129/61 (83) 92 Room Air Physical Exam: General Appearance: WD/WN, no apparent distress ENT: normal ENT inspection Neck: supple, no adenopathy Respiratory/Chest: no respiratory distress, no accessory muscle use Cardiovascular: no JVD Gastrointestinal: Abdomen: normal abdomen, pertinent finding (Some palpable firmness within the lower abdomen, mobile with no tenderness, redness or warmth being present. No evidence of cellulitis or ongoing active infection.) Incision: normal incision (Suprapubic tube site well-healed with no drainage or redness.) Bladder: normal bladder Renal: normal renal Liver: normal liver Spleen: normal spleen Neurologic/Psychiatric: alert Skin: normal color Assessment & Plan Assessment & Plan A/P 87-year-old male with lower abdominal pain in collection in the space of Retzius. I am not concerned for the possibility of an acute abdomen or significant, clinical ongoing infection in this patient seen his normal white count, lack of infectious symptoms at home, benign abdominal exam and lack of fevers. Patient' s suprapubic tube has been removed for over 2 months and previously had been indwelling for some time; I suspect that the process noted on his CT scan likely represents chronic sequelae from his long-standing tube, previous history of urinary tract infection and healing after removal. Gresham catheter is in place -will check a CT cystogram to ensure a lack of communication from his bladder to the area in question. If this is normal would consider treating the patient for possible UTI (would obtain urine culture results presumably sent from [facility]) and a trial of void prior to discharge home. Patient is due to be seen by our service in November of this year -we can recheck abdominal imaging at that time to evaluate the evolution of his prevesical collection. Will provide a dulcolax suppository today to assist with the patient's lack of recent bowel movements. Patient clinically feels much improved. Further management per primary service. Thank you for allowing us to participate in this patient's care. His contact our service with any questions or concerns.
--- NOTE | 2017-10-03 10:44 | Hospitalist Progress Note ---
Hospitalist Progress Note Date of Service Oct 03, 2017. Subjective Pt evaluation today including: conversation w/ patient, physical exam, lab review, review of inpatient medication list Voiding: sepulveda catheter in place (draining concentrated yellow urine ) Patient is resting in bed. Feeling well this AM. States he normally has a BM prior to bed. On Sunday, he did not and he started to have lower abdominal cramping. Continue to have cramping/no BM so proceeded to [facility] yesterday. Abdominal pain/cramping has resolved. Still no BM- PRN suppository ordered. Seen by Urology- does not think abscess- CT cystogram ordered. Eating and drinking OK. Sepulveda placed. Patient denies any fever, chills, sweats, lightheadedness, dizziness, vision changes, CP, palpitations, edema, SOB, wheezing, cough, abdominal pain, nausea, vomiting, diarrhea, urinary symptoms, melena, numbness/tingling, weakness, muscle/joint pain, anxiety/depression, active bleeding, or new skin discoloration/changes. Medications Current Inpatient Medications Medications (Trade) Dose Ordered Sig/Taylor Route Start Time Stop Time Status Last Admin Dose Admin Acetaminophen (Tylenol Tab) 650 mg Q4H PRN PO 10/02/17 16:00 11/01/17 15:59 Polyethylene (Miralax Powder Packet) 17 gm DAILY PRN PO 10/02/17 16:00 11/01/17 15:59 Ondansetron HCl (Zofran Inj) 4 mg Q6H PRN IV 10/02/17 16:00 11/01/17 15:59 Miscellaneous Information (Consult) 1 ea UD PRN N/A 10/02/17 16:00 11/01/17 15:59 Miscellaneous Information (Consult) 1 ea UD PRN N/A 10/02/17 16:00 11/01/17 15:59 Amitriptyline HCl (Elavil Tab) 50 mg HS PO 10/02/17 21:00 11/01/17 20:59 10/02/17 20:22 50 MG Atenolol (Tenormin Tab) 25 mg QAM PO 10/03/17 08:00 11/02/17 08:59 10/03/17 08:03 25 MG Finasteride (Proscar Tab) 5 mg QPM PO 10/02/17 21:00 11/01/17 20:59 10/02/17 20:22 5 MG Isosorbide Mononitrate (Imdur Ext Rel Tab) 30 mg QAM PO 10/03/17 09:00 11/02/17 08:59 10/03/17 08:03 30 MG Oxycodone/ Acetaminophen (Percocet 5-325mg Tab) 1 tab Q4H PRN PO 10/02/17 16:00 10/16/17 15:59 Miscellaneous Information (Order Awaiting Action) 1 ea QS N/A 10/03/17 00:00 11/02/17 00:00 Pantoprazole Sodium (Protonix Tab) 40 mg HS PO 10/02/17 21:00 11/01/17 20:59 10/02/17 20:22 40 MG Insulin Aspart (novoLOG ASPART) SLIDING SCALE G... ACHS SC 10/02/17 16:00 11/01/17 15:59 10/03/17 08:29 6 UNITS Glucose (Glucose 40% Gel) 15-30 GRAMS 15 GRAMS... UD PRN PO 10/02/17 16:00 11/01/17 15:59 Glucose (Glucose Chew Tab) 4-8 Tablets 4 Tabl... UD PRN PO 10/02/17 16:00 11/01/17 15:59 Dextrose (Dextrose 50% 50ML Syringe) 25-50ML OF 50% DW IV FOR... UD PRN IV 10/02/17 16:00 11/01/17 15:59 Glucagon (Glucagon Inj) 1 mg UD PRN SQ 10/02/17 16:00 11/01/17 15:59 Tamsulosin HCl (Flomax Cap) 0.4 mg PM PO 10/02/17 21:00 11/01/17 20:59 10/02/17 20:22 0.4 MG Vancomycin HCl 1000 mg/Sodium Chloride 270 ml @ 125 mls/hr Q24H IV 10/03/17 14:00 10/12/17 13:59 Piperacillin Sod/ Tazobactam Sod 3.375 gm/Sodium Chloride 115 ml @ 28.75 mls/ hr Q8H IV 10/02/17 22:00 10/12/17 16:59 10/03/17 05:51 28.75 MLS/HR Bisacodyl (Dulcolax Supp) 10 mg BID PRN OK 10/03/17 08:45 11/02/17 08:44 10/03/17 09:51 10 MG Objective Vital Signs Date Time Temp Pulse Resp B/P (MAP) Pulse Ox O2 Delivery O2 Flow Rate FiO2 10/03/17 08:00 93 Room Air 95 10/03/17 07:14 36.4 66 19 162/79 (106) 93 Room Air 10/03/17 00:00 Room Air 10/02/17 22:39 36.6 73 18 129/61 (83) 92 Room Air 10/02/17 19:38 36.6 72 20 120/55 Room Air 95 10/02/17 15:50 36.6 72 20 120/55 (76) 94 Room Air Physical Exam General Appearance: no apparent distress Eyes: normal inspection, PERRL ENT: hearing grossly normal Neck: supple Respiratory/Chest: lungs clear, no respiratory distress, no accessory muscle use Cardiovascular: regular rate, rhythm Abdomen: normal bowel sounds, non tender, soft, + pertinent finding ( suprapubic catheter site- healed over, no erythema, warmth, drainage) Extremities: no pedal edema, no calf tenderness Neurologic/Psychiatric: alert, normal mood/affect, oriented x 3 Skin: normal color, warm/dry, no rash Laboratory Results Last 24 Hours Test 10/02/17 16:25 10/02/17 16:33 10/02/17 19:45 10/03/17 05:33 Prothrombin Time 11.2 SECONDS Prothromb Time International Ratio 1.1 Creatinine 1.10 mg/dl 1.41 mg/dl Estimated GFR () 69.6 51.5 Estimated GFR (Non- 60.0 44.5 Bedside Glucose 119 mg/dl 105 mg/dl White Blood Count 6.80 K/uL Red Blood Count 3.85 M/uL Hemoglobin 12.4 g/dL Hematocrit 36.6 % Mean Corpuscular Volume 95.1 fL Mean Corpuscular Hemoglobin 32.2 pg Mean Corpuscular Hemoglobin Concent 33.9 g/dl Platelet Count 173 K/uL Mean Platelet Volume 10.1 fL Neutrophils (%) (Auto) 70.3 % Lymphocytes (%) (Auto) 16.9 % Monocytes (%) (Auto) 9.6 % Eosinophils (%) (Auto) 2.8 % Basophils (%) (Auto) 0.3 % Neutrophils # (Auto) 4.78 K/uL Lymphocytes # (Auto) 1.15 K/uL Monocytes # (Auto) 0.65 K/uL Eosinophils # (Auto) 0.19 K/uL Basophils # (Auto) 0.02 K/uL RDW Standard Deviation 50.5 fL RDW Coefficient of Variation 14.7 % Immature Granulocyte % (Auto) 0.1 % Immature Granulocyte # (Auto) 0.01 K/uL Sodium Level 139 mmol/L Potassium Level 4.1 mmol/L Chloride Level 109 mmol/L Carbon Dioxide Level 26 mmol/L Anion Gap 4.0 mmol/L Blood Urea Nitrogen 24 mg/dl Est Creatinine Clear Calc Drug Dose 30.9 ml/min BUN/Creatinine Ratio 16.7 Random Glucose 116 mg/dl Calcium Level 8.5 mg/dl Test 10/03/17 07:36 Bedside Glucose 110 mg/dl Assessment and Plan 87 y/o M who was transferred here from [facility] on 10/02 for UTI and abscess along suprapubic catheter tract. 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 Lion: - Admitted to med/surg - IV Vancomycin + Zosyn- started on 10/02- last UCx in 07/2017 w/ pansensitive Enterococcus faecalis and Penicillin resistant CoNS - Will follow UCx from [facility]- #[phone] - Sepulveda placed- will need TOV prior to discharge - Continue Proscar and Flomax - Urology consulted, appreciate recommendations- obtain CT cystogram [facility]- baseline hash slinger 1.0: - ?secondary to CT contrast on 10/02- will gently hydrate w/ IV NSS @ 80 ml/hr - Follow hash slinger- currently 1.4 today Constipation- last BM 09/30: Dulcolax suppository BID PRN, MiraLAX PRN T2DM- last hgbA1c 6.6% in 01/2017: - Hold Metformin while inpatient - BSG ACHS and ISS HTN, CAD- STABLE: - Continue Imdur 30 mg daily and Atenolol 25 mg daily - Holding ASA for possible intervention as above Depression: Continue Elavil GERD: Protonix while inpatient- resume Prilosec at discharge DVT prophylaxis: SCDs, ambulation Code status: LEVEL I, FULL Dispo: From home, lives w/ - PT/OT and CM consulted
[2017-10-03] MEDS: SODIUM CHLORIDE 0.9% 1000ML 1,000 ML IV SCH (11:00)
[2017-10-03] MEDS: POLYETHYLENE (MIRALAX) 17 GM PACK PO PRN (11:19)
[2017-10-03] MEDS ORDERED: VANCOMYCIN IV 1,000 MG in SODIUM CHLORIDE 0.9% 250ML 250 ML IV SCH ×2 (14:00→16:00)
--- NOTE | 2017-10-03 14:44 | DIAGNOSTIC IMAGING REPORT ---
ABD/PELVIS NO IV OR ORAL CONT CT DOSE: 435.50 mGycm HISTORY: CT cystogram for collection seen along oldsuprapubic tube tract TECHNIQUE: Multiaxial CT images of the abdomen and pelvis were performed without contrast. A dose lowering technique was utilized adhering to the principles of ALARA. COMPARISON STUDY: CT 10/02/2017 FINDINGS: Examination is performed following the retrograde opacification of the bladder with nonionic contrast. A Gresham catheter is in position. There is findings of severe trabeculation and small diverticulum formation of the bladder. The level of the bladder dome there is a air-fluid level with a small amount of retrograde-induced contrast. 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 No true extravasation is present. Bowel pattern shows a considerable increase in fecal material consistent with fecal stasis. IMPRESSION: 1. No evidence for contrast extravasation from the bladder. 2. 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 3. 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 4. No well-defined contrast extravasation. 5. Fecal stasis. The above report was generated using voice recognition software. It may contain grammatical, syntax or spelling errors. Electronically signed by: Myron Zuniga M.D. 10/03/2017 2:42 PM Dictated Date/Time: 10/03/2017 2:17 PM
[2017-10-03] MEDS ORDERED: POLYETHYLENE (MIRALAX) 17 GM PACK PO ONE (15:15)
[2017-10-03 15:59] VITALS: BP 157/71; PULSE 60; TEMP 36.4; O2SAT 98
[2017-10-03 16:00] VITALS: O2SAT 98
[2017-10-03] MEDS: TAMSULOSIN HCL 0.4 MG CAP PO SCH (19:42)
[2017-10-03] MEDS: FINASTERIDE 5 MG TAB PO SCH (19:43)
[2017-10-03] MEDS: PANTOprazole SOD 40 MG TAB PO SCH (19:43)
[2017-10-03] MEDS: AMITRIPTYLINE HCL 50 MG TAB PO SCH (19:43)
[2017-10-04 00:07] VITALS: BP 164/77; PULSE 63; TEMP 37; O2SAT 94
[2017-10-04] MEDS: SODIUM CHLORIDE 0.9% 1000ML 1,000 ML IV SCH (04:43)
[2017-10-04] MEDS: PIPERACILL/TAZOBAC IV 3.375 GM in SODIUM CHLORIDE 0.9% 100ML 100 ML IV SCH (06:31)
[2017-10-04 07:28] VITALS: BP 159/73; PULSE 63; TEMP 36.8; O2SAT 93
[2017-10-04 07:44] LABS: CREATININE 1.39 mg/dl (0.60-1.40)
[2017-10-04] MEDS: ISOSORBIDE MONONITRATE 30 MG TABCR PO SCH (07:49)
[2017-10-04] MEDS: POLYETHYLENE (MIRALAX) 17 GM PACK PO PRN (07:57)
[2017-10-04] MEDS: INSULIN ASPART 100 UNITS/ML 3 ML PEN SC SCH ×3 (08:02→16:30)
--- NOTE | 2017-10-04 08:38 | Progress Note ---
Subjective Date of Service: Oct 04, 2017. Subjective Pt evaluation today including: conversation w/ patient, physical exam, chart review, lab review, review of studies, review of inpatient medication list Pain: Denies PO Intake: Rohan regular diet Voiding: sepulveda catheter in place (urine clear) Patient admitted for UTI, questionable abscess in the space of Retzius. Sepulveda in place, no new complaints, remains afebrile. CT cystogram done yesterday PM, images personally reviewed - the "abscess" present on outside CT scan images simply represents redundant bladder. No extravasation, no redemonstration of the area in question when the bladder is opacified. Large capacity, patulous bladder and diverticulae consistent with patient's history of longstanding WINSTON from BPH improved s/p TURP. Problem List Medical Problems: (1) Suprapubic catheter Status: Acute (2) UTI (urinary tract infection) Status: Acute Review of Systems Constitutional: No fever, No chills Eyes: No worsening of vision ENT: No hearing loss Respiratory: No sputum, No wheezing Abdomen: No nausea, No vomiting Male : + see HPI Neurologic: No paralysis Psychiatric: No depression symptoms Endo: No excessive thirst Skin: No new/changing skin lesions, No color change Objective Vital Signs Date Time Temp Pulse Resp B/P (MAP) Pulse Ox O2 Delivery O2 Flow Rate FiO2 10/04/17 07:28 36.8 63 16 159/73 (101) 93 Room Air 10/04/17 00:07 37.0 63 18 164/77 (106) 94 Room Air 10/04/17 00:00 Room Air 10/03/17 16:00 98 Room Air 95 10/03/17 15:59 36.4 60 16 157/71 (99) 98 Room Air Physical Exam General Appearance: WD/WN, no apparent distress ENT: hearing grossly normal Neck: supple, no adenopathy Respiratory/Chest: no respiratory distress, no accessory muscle use Cardiovascular: no JVD Abdomen: non tender, soft Extremities: non-tender Neurologic/Psychiatric: alert Skin: normal color Laboratory Results Last 24 Hours Test 10/03/17 11:38 10/03/17 16:40 10/03/17 20:08 10/04/17 06:22 Bedside Glucose 188 mg/dl 119 mg/dl 126 mg/dl Creatinine 1.39 mg/dl Est Creatinine Clear Calc Drug Dose 31.4 ml/min Estimated GFR () 52.4 Estimated GFR (Non- 45.2 Test 10/04/17 07:43 Bedside Glucose 116 mg/dl Assessment and Plan A/P 87 yo male with patulous bladder, UTI. DC sepulveda. Patient has been voiding adequately since his TURP. Rx for UTI per primary service. Afebrile, can be done as outpatient. Outpatient follow-up with our service in November as planned. 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 Stable for DC from perspective. Thank you for allowing us to participate in this patient's care. Will sign off - please recall our service PRN new questions or concerns. Discharge planning: home
[2017-10-04] MEDS ORDERED: SOD PHOSPHATE/SOD BIPHOSPHATE ENEMA 132 ML BTL PR STA (10:40)
[2017-10-04] MEDS ORDERED: VANCOMYCIN IV 750 MG in SODIUM CHLORIDE 0.9% 250ML 250 ML IV SCH (14:00)
[2017-10-04] MEDS ORDERED: POLYETHYLENE (MIRALAX) 17 GM PACK PO ONE (14:15)
--- NOTE | 2017-10-04 14:16 | Hospitalist Progress Note ---
Hospitalist Progress Note Date of Service Oct 04, 2017. Subjective Pt evaluation today including: conversation w/ patient, conversation w/ family ( at bedside ), physical exam, lab review, review of inpatient medication list Patient resting in bed. Feeling well. 2 small BMs. Feels he needs to go more. Eating and drinking OK. Gresham to be removed this AM. Patient denies any fever, chills, sweats, lightheadedness, dizziness, vision changes, CP, palpitations, edema, SOB, wheezing, cough, abdominal pain, nausea, vomiting, diarrhea, urinary symptoms, melena, numbness/tingling, weakness, muscle/joint pain, anxiety/depression, active bleeding, or new skin discoloration/changes. Rechecked on patient in afternoon. Had fleet enema- small BM. Nothing significant. Gresham removed. Still has not urinated. states Gresham was placed at [facility] because he could not urinate. Ambulating around room w/out assistance. Script for rolling walker given to CM. Medications Current Inpatient Medications Medications (Trade) Dose Ordered Sig/Taylor Route Start Time Stop Time Status Last Admin Dose Admin Acetaminophen (Tylenol Tab) 650 mg Q4H PRN PO 10/02/17 16:00 11/01/17 15:59 Polyethylene (Miralax Powder Packet) 17 gm DAILY PRN PO 10/02/17 16:00 11/01/17 15:59 10/04/17 07:57 17 GM Ondansetron HCl (Zofran Inj) 4 mg Q6H PRN IV 10/02/17 16:00 11/01/17 15:59 Miscellaneous Information (Consult) 1 ea UD PRN N/A 10/02/17 16:00 11/01/17 15:59 Miscellaneous Information (Consult) 1 ea UD PRN N/A 10/02/17 16:00 11/01/17 15:59 Amitriptyline HCl (Elavil Tab) 50 mg HS PO 10/02/17 21:00 11/01/17 20:59 10/03/17 19:43 50 MG Atenolol (Tenormin Tab) 25 mg QAM PO 10/03/17 08:00 11/02/17 08:59 10/04/17 07:50 25 MG Finasteride (Proscar Tab) 5 mg QPM PO 10/02/17 21:00 11/01/17 20:59 10/03/17 19:43 5 MG Isosorbide Mononitrate (Imdur Ext Rel Tab) 30 mg QAM PO 10/03/17 09:00 11/02/17 08:59 10/04/17 07:49 30 MG Oxycodone/ Acetaminophen (Percocet 5-325mg Tab) 1 tab Q4H PRN PO 10/02/17 16:00 10/16/17 15:59 Miscellaneous Information (Order Awaiting Action) 1 ea QS N/A 10/03/17 00:00 11/02/17 00:00 Pantoprazole Sodium (Protonix Tab) 40 mg HS PO 10/02/17 21:00 11/01/17 20:59 10/03/17 19:43 40 MG Insulin Aspart (novoLOG ASPART) SLIDING SCALE G... ACHS SC 10/02/17 16:00 11/01/17 15:59 10/04/17 12:47 3 UNITS Glucose (Glucose 40% Gel) 15-30 GRAMS 15 GRAMS... UD PRN PO 10/02/17 16:00 11/01/17 15:59 Glucose (Glucose Chew Tab) 4-8 Tablets 4 Tabl... UD PRN PO 10/02/17 16:00 11/01/17 15:59 Dextrose (Dextrose 50% 50ML Syringe) 25-50ML OF 50% DW IV FOR... UD PRN IV 10/02/17 16:00 11/01/17 15:59 Glucagon (Glucagon Inj) 1 mg UD PRN SQ 10/02/17 16:00 11/01/17 15:59 Tamsulosin HCl (Flomax Cap) 0.4 mg PM PO 10/02/17 21:00 11/01/17 20:59 10/03/17 19:42 0.4 MG Piperacillin Sod/ Tazobactam Sod 3.375 gm/Sodium Chloride 115 ml @ 28.75 mls/ hr Q8H IV 10/02/17 22:00 10/12/17 16:59 10/04/17 06:31 28.75 MLS/HR Bisacodyl (Dulcolax Supp) 10 mg BID PRN [place] 10/03/17 08:45 11/02/17 08:44 10/03/17 09:51 10 MG Vancomycin HCl 750 mg/Sodium Chloride 265 ml @ 125 mls/hr Q24H IV 10/04/17 14:00 10/12/17 13:59 Objective Vital Signs Date Time Temp Pulse Resp B/P (MAP) Pulse Ox O2 Delivery O2 Flow Rate FiO2 10/04/17 08:00 Room Air 10/04/17 07:28 36.8 63 16 159/73 (101) 93 Room Air 10/04/17 00:07 37.0 63 18 164/77 (106) 94 Room Air 10/04/17 00:00 Room Air 10/03/17 16:00 98 Room Air 95 10/03/17 15:59 36.4 60 16 157/71 (99) 98 Room Air Physical Exam General Appearance: no apparent distress Eyes: normal inspection, PERRL ENT: hearing grossly normal Neck: supple Respiratory/Chest: lungs clear, no respiratory distress, no accessory muscle use Cardiovascular: regular rate, rhythm Abdomen: normal bowel sounds, non tender, soft, + pertinent finding ( suprapubic catheter site- healed over, no erythema, warmth, drainage) Extremities: no pedal edema, no calf tenderness Neurologic/Psychiatric: alert, normal mood/affect, oriented x 3 Skin: normal color, warm/dry, no rash Laboratory Results Last 24 Hours Test 10/03/17 16:40 10/03/17 20:08 10/04/17 06:22 10/04/17 07:43 Bedside Glucose 119 mg/dl 126 mg/dl 116 mg/dl Creatinine 1.39 mg/dl Est Creatinine Clear Calc Drug Dose 31.4 ml/min Estimated GFR () 52.4 Estimated GFR (Non- 45.2 Test 10/04/17 12:17 Bedside Glucose 107 mg/dl Assessment and Plan 87 y/o M who was transferred here from [facility] on 10/02 for UTI and abscess along suprapubic catheter tract. 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 Lion: - Admitted to med/surg - IV Vancomycin + Zosyn- started on 10/02- last UCx in 07/2017 w/ pansensitive Enterococcus faecalis and Penicillin resistant CoNS- stop abx due to negative culture - UCx from [facility]- mixed growth, likely contamination- final - Gresham placed- TOV today, blader scan and straight cath PRN - Continue Proscar and Flomax - CT cystogram w/out abscess or communicable tract - Urology consulted, appreciate recommendations- stable for discharge, f/u as scheduled in November BERTA- baseline brim setter 1.0- IMPROVING: - ?secondary to CT contrast on 10/02- gently hydrated w/ IV NSS @ 80 ml/hr x2 - Follow brim setter- currently 1.3 today Constipation- last BM 09/30: Dulcolax suppository BID PRN, MiraLAX PRN, Fleet enema PRN, Senokot S daily T2DM- last hgbA1c 6.6% in 01/2017: - Hold Metformin while inpatient- resume at discharge - BSG ACHS and ISS HTN, CAD- STABLE: - Continue Imdur 30 mg daily and Atenolol 25 mg daily - Resume ASA, no urological procedure needed at this time Depression: Continue Elavil GERD: Protonix while inpatient- resume Prilosec at discharge DVT prophylaxis: SCDs, ambulation Code status: LEVEL I, FULL Dispo: Discharge to home once medically stable- hopefully in the next 1 day- PT/ OT and CM following
--- NOTE | 2017-10-04 14:18 | Discharge Summary ---
Discharge Summary Date of Service Oct 04, 2017. Discharge Summary Admission Date: Oct 02, 2017 at 15:53 Discharge Date: Oct 04, 2017 Discharge Disposition: Home Principal Diagnosis: Constipation Problems/Secondary Diagnoses: UTI POA and ?abscess along catheter tract BPH w/ urinary retention s/p suprapubic catheter tract- removed s/p TURP BERTA T2DM HTN CAD Depression GERD Immunizations: Have You Had Influenza Vaccine: Yes History of Tetanus Vaccine?: Yes History of Pneumococcal: Yes History of Hepatitis B Vaccine: No Procedures: ABD/PELVIS NO IV OR ORAL CONT CT DOSE: 435.50 mGycm HISTORY: CT cystogram for collection seen along oldsuprapubic tube tract TECHNIQUE: Multiaxial CT images of the abdomen and pelvis were performed without contrast. A dose lowering technique was utilized adhering to the principles of ALARA. COMPARISON STUDY: CT 10/02/2017 FINDINGS: Examination is performed following the retrograde opacification of the bladder with nonionic contrast. A Gresham catheter is in position. There is findings of severe trabeculation and small diverticulum formation of the bladder. The level of the bladder dome there is a air-fluid level with a small amount of retrograde-induced contrast. 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 No true extravasation is present. Bowel pattern shows a considerable increase in fecal material consistent with fecal stasis. IMPRESSION: 1. No evidence for contrast extravasation from the bladder. 2. 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 3. 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 4. No well-defined contrast extravasation. 5. Fecal stasis. The above report was generated using voice recognition software. It may contain grammatical, syntax or spelling errors. Electronically signed by: Myron Zuniga M.D. 10/03/2017 2:42 PM Dictated Date/Time: 10/03/2017 2:17 PM The status of this report is Signed. Draft = Not yet reviewed or approved by Radiologist. Signed = Reviewed and approved by Radiologist Consultations: Urology- Dr. Lion Medication Reconciliation Continued Medications: Acetaminophen (Tylenol) 500 Mg Tab 500 MG PO PRN, TAB Amitriptyline Hcl (Elavil) 50 Mg Tab 50 MG PO HS, TAB Aspirin (Aspir-81) 81 Mg Tab 81 MG PO QPM Restart in 3 days if urine clear Atenolol (Tenormin) 25 Mg Tab 25 MG PO QAM, TAB Dutasteride-Tamsulosin Hcl (Jennifer) 1 Cap Cap 1 CAP PO HS for 90 Days, CAP 3 Refills Finasteride (Proscar) 5 Mg Tab 5 MG PO QPM, TAB Home O2 Therapy (Oxygen) Gas 2 LITERS NA PRN, BTL Isosorbide Mononitrate Ext Rel (Imdur Ext Rel) 30 Mg Ertab 30 MG PO QAM, TAB Metformin Hcl (Glucophage) 500 Mg Tab 500 MG PO BID, TAB Multivitamin (Multivitamin) Tab 1 TAB PO HS, TAB Omeprazole (Prilosec) 20 Mg Capcr 20 MG PO HS Oxycodone/Acetaminophen 5MG/325MG (Percocet 5MG/325MG) Tab 1 TABLET PO Q4H PRN for Pain, #15 TAB [Biotin] () 1 TAB PO QAM Referrals At Discharge Follow up Referrals: Family Practice Referral - Within 1 Week with Luke Javier M.D. Discharge Exam Review of Systems: Constitutional: No fever, No chills, No sweats, No weakness, No fatigue Eyes: No worsening of vision ENT: No hearing loss Respiratory: No cough, No shortness of breath, No hemoptysis Cardiovascular: No chest pain, No edema, No palpitations Abdomen: No pain, No nausea, No vomiting, No diarrhea, No constipation Musculoskeletal: No joint pain, No muscle pain, No swelling, No calf pain Genitourinary - Male: No hematuria, No dysuria Neurologic: No weakness, No numbness/tingling Psychiatric: No depression symptoms, No anxiety Endocrine: No fatigue Integumentary: No rash, No itch, No new/changing skin lesions Physical Exam: General Appearance: no apparent distress Eyes: normal inspection, PERRL ENT: hearing grossly normal Neck: supple Respiratory/Chest: lungs clear, no respiratory distress, no accessory muscle use Cardiovascular: regular rate, rhythm Abdomen / GI: normal bowel sounds, non tender, soft, + pertinent finding ( suprapubic catheter site- healed over, no erythema, warmth, drainage) Extremities: no calf tenderness, no pedal edema Neurologic/Psychiatric: alert, normal mood/affect, oriented x 3 Skin: normal color, warm/dry, no rash Hospital Course 87 y/o M who was transferred here from [facility] on 10/02 for UTI and abscess along suprapubic catheter tract. 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 Lion: - Admitted to med/surg - IV Vancomycin + Zosyn- started on 10/02- last UCx in 07/2017 w/ pansensitive Enterococcus faecalis and Penicillin resistant CoNS- no growth on UCx, no abx at discharge - UCx at [facility]- final report w/ mixed growth, likely contamination - Gresham placed- TOV prior to discharge completed - Continue Proscar and Flomax - CT angiogram w/out evidence of abscess, no communicable tracts - Urology consulted, appreciate recommendations- stable for discharge, f/u as scheduled in November Constipation- RESOLVED: Dulcolax suppository BID PRN, MiraLAX PRN, Fleet enema PRN BERTA- baseline wearing apparel shaker 1.0- IMPROVING: - ?secondary to CT contrast on 10/02- gently hydrated w/ IV NSS @ 80 ml/hr - Follow wearing apparel shaker- currently 1.3 today T2DM- last hgbA1c 6.6% in 01/2017: - Hold Metformin while inpatient- resume at discharge - BSG ACHS and ISS HTN, CAD- STABLE: - Continue Imdur 30 mg daily and Atenolol 25 mg daily - Holding ASA for possible intervention as above- resume at discharge Depression: Continue Elavil GERD: Protonix while inpatient- resume Prilosec at discharge DVT prophylaxis: SCDs, ambulation Code status: LEVEL I, FULL Dispo: Discharge to home Total Time Spent: Greater than 30 minutes This includes examination of the patient, discharge planning, medication reconciliation, and communication with other providers. Discharge Instructions Please refer to the electronic Patient Visit Report (Discharge Instructions) for additional information. Follow-Up Please follow-up with your PCP within 5-7 days Please follow-up with Urology, Dr. Lion as previously scheduled in November Please follow-up/keep all of your subspecialty appointments Additional Copies To Luke Javier M.D.
--- NOTE | 2017-10-04 14:18 | Discharge Instructions ---
Discharge Instructions Date of Service Oct 04, 2017. Admission Reason for Admission: Uti, Abscess Discharge Discharge Diagnosis / Problem: Constipation Discharge Goals Goal(s): Decrease discomfort, Improve function, Learn about illness, Diagnostic testing, Therapeutic intervention, Prevent Disease Progression Activity Recommendations Activity Limitations: resume your previous activity . Instructions / Follow-Up Instructions / Follow-Up You were admitted to [facility] from [facility] due to complaints of abdominal discomfort. The cause of your discomfort was likely due to constipation. You were treated with a bowel regimen and this resolved. You can buy over-the- counter bowel regimens (such a MiraLAX, Colace, Dulcolax, etc..) as needed for constipation. Initially, it was thought you may have a urinary tract infection and/or abscess at site of suprapubic catheter. You were treated with IV antibiotics prophylactically. Abscess was ruled out through imaging. Your urine culture did not have any growth. You do NOT require antibiotics at discharge. Resume all other regular home medications as prescribed. FOLLOW-UPS: Please follow-up with your PCP within 5-7 days Please follow-up with Urology, Dr. Lion at previously scheduled in November Please follow-up/keep all of your subspecialty appointments Current Hospital Diet Patient's current hospital diet: AHA Diet (Heart Healthy), Diabetes Type 2 Diet Discharge Diet Recommended Diet: AHA Diet (Heart Healthy), Diabetes Type 1 Diet Pending Studies Studies pending at discharge: no Medical Emergencies . Who to Call and When: Medical Emergencies: If at any time you feel your situation is an emergency, please call 911 immediately. . Non-Emergent Contact Non-Emergency issues call your: Primary Care Provider, Urologist Call Non-Emergent contact if: you have a fever, your pain is not controlled, your pain is worsening, your pain is unusual for you, your pain is concerning you, wound has increased drainage, wound has increased redness, wound has increased pain, you have any medication questions . . "Provider Documentation" section prepared by Emerald Carney. .
[2017-10-04] MEDS ORDERED: SENNA 8.6 MG TAB PO ONE (14:20)
[2017-10-04 15:39] VITALS: BP 161/82; PULSE 60; TEMP 36.5; O2SAT 100
[2017-10-04] MEDS ORDERED: MRLP17X PO ×2 (16:08)
[2017-10-04 16:16] VITALS: BP 161/82; PULSE 60; TEMP 36.5; O2SAT 100
[2017-10-05] MEDS ORDERED: SENNA 8.6 MG TAB PO SCH (08:00)
[2017-10-05] MEDS ORDERED: ASPIRIN 81 MG ECTAB PO SCH (08:00)
[2017-10-05] MEDS ORDERED: PRLSR20 PO (09:30)
[2017-10-05] MEDS ORDERED: OXYC1TAB3 PO (11:43)
[2017-10-05] MEDS ORDERED: POLY335019 PO (11:43)
[2017-10-05] MEDS ORDERED: VANCOMYCIN TROUGH ONE (13:30)
== END 2017-10-04 18:14 | disposition home health service (06) | DRG 690 ==
LOC: C.4E 15:53
PROVIDERS: ADMIT Internal Medicine; ATTEND Internal Medicine
DX: N39.0 Urinary tract infection, site not specified (principal); N17.9 Acute kidney failure, unspecified; K59.00 Constipation, unspecified; N40.1 Benign prostatic hyperplasia with lower urinary tract symptoms; R33.8 Other retention of urine; I25.10 Atherosclerotic heart disease of native coronary artery without angina pectoris; E11.9 Type 2 diabetes mellitus without complications; I10 Essential (primary) hypertension; K21.9 Gastro-esophageal reflux disease without esophagitis; E78.5 Hyperlipidemia, unspecified; F32.9 Major depressive disorder, single episode, unspecified; Z79.82 Long term (current) use of aspirin; Z79.84 Long term (current) use of oral hypoglycemic drugs; Z79.899 Other long term (current) drug therapy; Z87.01 Personal history of pneumonia (recurrent); Z87.891 Personal history of nicotine dependence; Z83.3 Family history of diabetes mellitus

== ENCOUNTER 2017-10-05 09:21 | Emergency (ER) | payer OTHER ==
[~2017-10-05] VITALS: Ht 165.1 cm; Wt 64.0 kg
[~2017-10-05 09:21] MED LIST changes: +MRLP17X PO
[2017-10-05 09:30] VITALS: TEMP 37
[2017-10-05] MEDS ORDERED: PRLSR20 PO (09:30)
--- NOTE | 2017-10-05 09:41 | EMERGENCY ROOM VISIT NOTE ---
History Report prepared by Rena: Alexandro Nunes Under the Supervision of: Dr. Luke Martinez D.O. First contact with patient: 09:24 Stated Complaint: LOWER BACK PAIN,RECENT D/C FOR BLADDER RETENTION History of Present Illness The patient is an 87 year old male who presents to the Emergency Room with complaints of constant bilateral back pain for the past few days. The patient states that he has a history of sciatica, and it was worse the past few days. He notes that the pain is worse with walking, and it is better with a hot shower. The patient states that the pain is radiating down both of his thighs. He denies any numbness in his legs, weakness in his legs, and abdominal pain. He was recently in the hospital for urinary symptoms, and he had to have a catheter put in, though it has since been removed. The patient reports that he had some urinary output today, though it was decreased. The patient has a history of an enlarged prostate, though he has no history of prostate cancer. Source of History: patient Onset: the past few days Position: back (bilateral) Timing: constant Modifying Factors (Worsening): other (walking) Modifying Factors (Relieving): other (hot shower) Associated Symptoms: No abdominal pain, No weakness, No numbness Review of Systems See HPI for pertinent positives & negatives. A total of 10 systems reviewed and were otherwise negative. Past Medical & Surgical Medical Problems: (1) Abscess (2) CAD (coronary artery disease) (3) Chest pain (4) Constipation (5) Diabetes (6) PNA (pneumonia) (7) PNA (pneumonia) (8) PNA (pneumonia) (9) Skin abscess (10) UTI (urinary tract infection) Social History Smoking Status: Former Smoker Alcohol Use: none Drug Use: none Marital Status: Housing Status: lives with family Occupation Status: retired Current/Historical Medications Scheduled Acetaminophen (Tylenol), 500 MG PO PRN Amitriptyline Hcl (Elavil), 50 MG PO HS Aspirin (Aspir-81), 81 MG PO QPM Atenolol (Tenormin), 25 MG PO QAM Dutasteride-Tamsulosin Hcl (Jennifer), 1 CAP PO HS Finasteride (Proscar), 5 MG PO QPM Home O2 Therapy (Oxygen), 2 LITERS NA PRN Isosorbide Mononitrate Ext Rel (Imdur Ext Rel), 30 MG PO QAM Metformin Hcl (Glucophage), 500 MG PO BID Multivitamin (Multivitamin), 1 TAB PO HS Omeprazole (Prilosec), 20 MG PO HS Polyethylene Glycol 3350 (Miralax), 17 GM PO DAILY Scheduled PRN Oxycodone Immediate Rel Tab (Roxicodone Ir), 0.5 TAB PO Q6H PRN for Severe Pain Oxycodone/Acetaminophen 5MG/325MG (Percocet 5MG/325MG), 1 TABLET PO Q4H PRN for Pain Polyethylene (Miralax), 17 GM PO DAILY PRN for Constipation Allergies Coded Allergies: No Known Allergies (Verified , 05/21/17) Physical Exam Vital Signs Date Time Temp Pulse Resp B/P (MAP) Pulse Ox O2 Delivery O2 Flow Rate FiO2 10/05/17 14:50 78 20 145/74 95 Room Air 10/05/17 13:30 85 20 151/74 93 Room Air 10/05/17 12:01 76 20 167/67 97 Room Air 10/05/17 09:47 97 10/05/17 09:30 37.0 77 20 153/85 97 Room Air Physical Exam GENERAL: Patient is awake, alert, non-anxious appearing EYES: The conjunctivae are clear. The pupils are round and reactive. EARS, NOSE, MOUTH AND THROAT: The nose is without any evidence of any deformity. Mucous membranes are moist tongue is midline NECK: The neck is nontender and supple. RESPIRATORY: Normal respiratory effort is noted there is no evidence of wheezing rhonchi or rales CARDIOVASCULAR: Regular rate and rhythm noted there no murmurs rubs or gallops normal S1 normal S2 GASTROINTESTINAL: The abdomen is soft. Bowel sounds are present in all quadrants. Abdomen is nontender BACK: No midline tenderness and range of motion appears intact. MUSCULOSKELETAL/EXTREMITIES: There is no evidence of gross deformity full range of motion is noted in the hips and shoulders SKIN: There is pedal edema bilaterally. NEUROLOGIC: Patient is awake alert and oriented x3 strength is symmetric patellar reflexes are 1+ bilaterally. Achilles tendon reflexes are 1+ bilaterally. Negative straight leg raise. Medical Decision & Procedures ER Provider Diagnostic Interpretation: Radiology results as stated below per my review and radiologist interpretation: L-SPINE MIN 4 VIEWS ROUTINE CLINICAL HISTORY: 87 years-old Male presenting with constant low back pain, unable to straighten back today. TECHNIQUE: Frontal, bilateral oblique, lateral, and coned in lateral views lumbar spine were obtained. COMPARISON: Correlation made to CT of the abdomen and pelvis performed on 10/03/2017. FINDINGS: Mild dextrocurvature of the lumbar spine. Slightly exaggerated lumbar lordosis. 8 mm of grade 1 anterolisthesis of L4 on L5. Vertebral body heights maintained. Intervertebral disc height loss at T12-L1, L1-2, L5-S1, and to a lesser degree at L4-5. Vacuum disc phenomenon also evident at these levels. Facet arthropathy most significant in the lower lumbar spine. No compression deformity. Significant anterior osteophytosis most notable at the thoracolumbar junction. Osseous neural foraminal narrowing may be present at L5-S1 and L1-2. Atherosclerosis. Surgical clips project over the pelvis. IMPRESSION: 1. No evidence of acute osseous injury of the lumbar spine. 2. Multilevel degenerative changes including grade 1 anterolisthesis of L4 on L5. 3. Osseous neural foraminal narrowing at L1-2 and L5-S1. These findings are not significantly changed since the most recent CT. Electronically signed by: Toi Okeefe M.D. 10/05/2017 11:31 AM Dictated Date/Time: 10/05/2017 11:28 AM Laboratory Results 10/05/17 09:40 Red Blood Count 4.10, Mean Corpuscular Volume 94.4, Mean Corpuscular Hemoglobin 31.7, Mean Corpuscular Hemoglobin Concent 33.6, Mean Platelet Volume 9.6, Neutrophils (%) (Auto) 79.3, Lymphocytes (%) (Auto) 9.4, Monocytes (%) (Auto) 10.3, Eosinophils (%) (Auto) 0.5, Basophils (%) (Auto) 0.3, Neutrophils # (Auto ) 4.92, Lymphocytes # (Auto) 0.58, Monocytes # (Auto) 0.64, Eosinophils # (Auto ) 0.03, Basophils # (Auto) 0.02 10/05/17 09:40 Test 10/05/17 09:40 10/05/17 11:00 White Blood Count 6.20 K/uL (4.8-10.8) Red Blood Count 4.10 M/uL (4.7-6.1) Hemoglobin 13.0 g/dL (14.0-18.0) Hematocrit 38.7 % (42-52) Mean Corpuscular Volume 94.4 fL (80-100) Mean Corpuscular Hemoglobin 31.7 pg (25-34) Mean Corpuscular Hemoglobin Concent 33.6 g/dl (32-36) Platelet Count 186 K/uL (130-400) Mean Platelet Volume 9.6 fL (7.4-10.4) Neutrophils (%) (Auto) 79.3 % Lymphocytes (%) (Auto) 9.4 % Monocytes (%) (Auto) 10.3 % Eosinophils (%) (Auto) 0.5 % Basophils (%) (Auto) 0.3 % Neutrophils # (Auto) 4.92 K/uL (1.4-6.5) Lymphocytes # (Auto) 0.58 K/uL (1.2-3.4) Monocytes # (Auto) 0.64 K/uL (0.11-0.59) Eosinophils # (Auto) 0.03 K/uL (0-0.5) Basophils # (Auto) 0.02 K/uL (0-0.2) RDW Standard Deviation 50.7 fL (36.4-46.3) RDW Coefficient of Variation 14.7 % (11.5-14.5) Immature Granulocyte % (Auto) 0.2 % Immature Granulocyte # (Auto) 0.01 K/uL (0.00-0.02) Prothrombin Time 10.9 SECONDS (9.0-12.0) Prothromb Time International Ratio 1.0 (0.9-1.1) Activated Partial Thromboplast Time 24.5 SECONDS (21.0-31.0) Partial Thromboplastin Ratio 0.9 Anion Gap 6.0 mmol/L (3-11) Est Creatinine Clear Calc Drug Dose 27.6 ml/min Estimated GFR () 42.9 Estimated GFR (Non- 37.0 BUN/Creatinine Ratio 13.6 (10-20) Calcium Level 9.6 mg/dl (8.5-10.1) Magnesium Level 2.2 mg/dl (1.8-2.4) Total Bilirubin 0.5 mg/dl (0.2-1) Direct Bilirubin 0.1 mg/dl (0-0.2) Aspartate Amino Transf (AST/SGOT) 25 U/L (15-37) Alanine Aminotransferase (ALT/SGPT) 42 U/L (12-78) Alkaline Phosphatase 87 U/L (45-117) Total Protein 7.3 gm/dl (6.4-8.2) Albumin 4.0 gm/dl (3.4-5.0) Urine Color YELLOW Urine Appearance CLEAR (CLEAR) Urine pH 5.5 (4.5-7.5) Urine Specific [place] 1.013 (1.000-1.030) Urine Protein 1+ (NEG) Urine Glucose (UA) NEG (NEG) Urine Ketones NEG (NEG) Urine Occult Blood TRACE (NEG) Urine Nitrite NEG (NEG) Urine Bilirubin NEG (NEG) Urine Urobilinogen NEG (NEG) Urine Leukocyte Esterase NEG (NEG) Urine WBC (Auto) 1-5 /hpf (0-5) Urine RBC (Auto) 0-4 /hpf (0-4) Urine Hyaline Casts (Auto) 1-5 /lpf (0-5) Urine Epithelial Cells (Auto) 0-5 /lpf (0-5) Urine Bacteria (Auto) NEG (NEG) Laboratory results per my review. ED Course 0924: The patient was evaluated in room B9. A complete history and physical examination were performed. 1058: I reevaluated the patient, and he was resting comfortably. 1137: I discussed the patient's case with [facility], and she is going to follow up with the patient. 1140: Upon reevaluation, the patient is doing well. I discussed the results and treatment plan with him. He verbalized agreement of the treatment plan. He was discharged home. Medical Decision Differential diagnosis: Etiologies such as musculoskeletal, disc herniation, fracture, aortic disease, metastatic disease, cord compression, discitis, infection, renal colic, gastrointestinal, acute exacerbation of chronic back pain, sciatica, cauda equina, as well as others were entertained. Nursing notes reviewed. Additional history is obtained from the patient's significant other. The patient is an 87-year-old male who presented to the emergency department for back pain. The patient had acute onset of low back pain. He was recently discharged from our facility with urinary retention problems. Currently he does not have a [place] catheter but is being treated for prostate problems. The patient was found to have signs of urinary retention. A [place] catheter was placed. The significantly improved the patient's symptoms. The patient's x- rays did show significant arthritis. It is possible that he has sciatica as well as urinary retention at this time but I feel the patient's urinary retention will need to be treated given the patient's small elevation in creatinine from baseline. The patient was encouraged to continue all medications as prescribed and drink plenty clear liquids. He was also started on medication for pain. I discussed his case with his covering urology group. He was encouraged to follow-up with his urologist next week for reevaluation but return to the emergency department immediately if symptoms change worsen or the need arises. Medication Reconcilliation Current Medication List: was personally reviewed by me Blood Pressure Screening Patient's blood pressure: Elevated blood pressure Blood pressure disposition: Elevated BP felt to be situational Consults Time Called: [id number] Consulting Physician: [facility] Returned Call: [phone] I discussed the patient's case with [facility], and she is going to follow up with the patient. Impression Primary Impression: Urinary retention Additional Impression: Sciatica Scribe Attestation The scribe's documentation has been prepared under my direction and personally reviewed by me in its entirety. I confirm that the note above accurately reflects all work, treatment, procedures, and medical decision making performed by me. Departure Information Dispostion Home / Self-Care Prescriptions Polyethylene Glycol 3350 (MIRALAX) 1 Pow Pow 17 GM PO DAILY, #527 GM Prov: Luke Martinez, 10/05/17 Oxycodone Immediate Rel Tab (ROXICODONE IR) 5 Mg Tab 0.5 TAB PO Q6H Y for Severe Pain, #15 TAB Prov: Luke Martinez, DO 10/05/17 Referrals Luke Javier M.D. (PCP) Forms HOME CARE DOCUMENTATION FORM, IMPORTANT VISIT INFORMATION Patient Instructions ED Catheter Care [place], ED Sciatica, My [facility] Additional Instructions Drink plenty clear liquids. Follow-up with the urologist as soon as possible. Continue using Tylenol as directed for mild pain. Follow-up with your family doctor soon as possible. Return to the emergency department immediately if symptoms change worsen or the need arises. Problem Qualifiers Additional Impression: Sciatica Laterality: unspecified laterality Qualified Codes: M54.30 - Sciatica, unspecified side
[2017-10-05 09:47] VITALS: O2SAT 97; Ht 165.1 cm; Wt 64.0 kg
[2017-10-05 09:51] LABS: BASO % 0.3 %; BASO ABS # 0.02 K/uL (0-0.2); EOS % 0.5 %; EOS ABS # 0.03 K/uL (0-0.5); HEMATOCRIT 38.7 % (42-52); IG# 0.01 K/uL (0.00-0.02); LYMPH % 9.4 %; LYMPH ABS # 0.58 K/uL (1.2-3.4); MEAN CELL VOLUME 94.4 fL (80-100); MEAN CORPUSCULAR HEMOGLOBIN 31.7 pg (25-34); MEAN CORPUSCULAR HGB CONC 33.6 g/dl (32-36); MEAN PLATELET VOLUME 9.6 fL (7.4-10.4); MONO % 10.3 %; MONO ABS # 0.64 K/uL (0.11-0.59); NEUT % 79.3 %; NEUT ABS # 4.92 K/uL (1.4-6.5); PLATELET COUNT 186 K/uL (130-400); RED CELL DISTRIBUTION WIDTH CV 14.7 % (11.5-14.5); RED CELL DISTRIBUTION WIDTH SD 50.7 fL (36.4-46.3)
[2017-10-05 10:02] LABS: PTT PATIENT 24.5 SECONDS (21.0-31.0)
[2017-10-05 10:11] LABS: CALCIUM 9.6 mg/dl (8.5-10.1); CREATININE 1.64 mg/dl (0.60-1.40); POTASSIUM 4.8 mmol/L (3.5-5.1); TOTAL PROTEIN 7.3 gm/dl (6.4-8.2)
--- NOTE | 2017-10-05 11:33 | DIAGNOSTIC IMAGING REPORT ---
L-SPINE MIN 4 VIEWS ROUTINE CLINICAL HISTORY: 87 years-old Male presenting with constant low back pain, unable to straighten back today. TECHNIQUE: Frontal, bilateral oblique, lateral, and coned in lateral views lumbar spine were obtained. COMPARISON: Correlation made to CT of the abdomen and pelvis performed on 10/03/2017. FINDINGS: Mild dextrocurvature of the lumbar spine. Slightly exaggerated lumbar lordosis. 8 mm of grade 1 anterolisthesis of L4 on L5. Vertebral body heights maintained. Intervertebral disc height loss at T12-L1, L1-2, L5-S1, and to a lesser degree at L4-5. Vacuum disc phenomenon also evident at these levels. Facet arthropathy most significant in the lower lumbar spine. No compression deformity. Significant anterior osteophytosis most notable at the thoracolumbar junction. Osseous neural foraminal narrowing may be present at L5-S1 and L1-2. Atherosclerosis. Surgical clips project over the pelvis. IMPRESSION: 1. No evidence of acute osseous injury of the lumbar spine. 2. Multilevel degenerative changes including grade 1 anterolisthesis of L4 on L5. 3. Osseous neural foraminal narrowing at L1-2 and L5-S1. These findings are not significantly changed since the most recent CT. Electronically signed by: Toi Okeefe M.D. 10/05/2017 11:31 AM Dictated Date/Time: 10/05/2017 11:28 AM
[2017-10-05] MEDS ORDERED: POLY335019 PO (11:43)
[2017-10-05] MEDS ORDERED: OXYC1TAB3 PO (11:43)
[2017-10-05 14:50] VITALS: BP 145/74; PULSE 78; O2SAT 95
== END 2017-10-05 14:53 | disposition home or self-care (01) ==
LOC: EDBD 09:21 → C.EDB 09:24
DX: M54.30 Sciatica, unspecified side (principal); R33.9 Retention of urine, unspecified; N40.0 Benign prostatic hyperplasia without lower urinary tract symptoms; I25.10 Atherosclerotic heart disease of native coronary artery without angina pectoris; E11.9 Type 2 diabetes mellitus without complications; Z87.01 Personal history of pneumonia (recurrent); N39.0 Urinary tract infection, site not specified; Z87.891 Personal history of nicotine dependence; Z79.82 Long term (current) use of aspirin; Z79.899 Other long term (current) drug therapy

== ENCOUNTER 2017-10-09 03:43 | Emergency (ER) | payer OTHER ==
[~2017-10-09] VITALS: Ht 165.1 cm; Wt 62.7 kg
[~2017-10-09 03:43] MED LIST changes: -BIOTPOW17 PO; -OMEP20CA59 PO; +OXYC1TAB3 PO; +POLY335019 PO; +PRLSR20 PO
[2017-10-09 03:45] VITALS: TEMP 37.2; Ht 165.1 cm; Wt 62.7 kg
[2017-10-09] MEDS ORDERED: HYDROmorphone INJ 0.5 MG/0.5 ML SYR IV STA ×2 (04:09→05:28)
[2017-10-09] MEDS ORDERED: POLY335019 PO (04:18)
[2017-10-09] MEDS ORDERED: OXYC1TAB3 PO (04:18)
[2017-10-09] MEDS ORDERED: CTP1X PO (04:20)
[2017-10-09] MEDS ORDERED: ONDANSETRON INJ 2 MG/ML 2 ML VIAL IV STA (04:37)
[2017-10-09 04:40] LABS: BASO % 0.1 %; BASO ABS # 0.01 K/uL (0-0.2); EOS % 0.2 %; EOS ABS # 0.02 K/uL (0-0.5); HEMATOCRIT 38.7 % (42-52); HEMOGLOBIN 13.4 g/dL (14.0-18.0); IG# 0.03 K/uL (0.00-0.02); LYMPH % 8.8 %; LYMPH ABS # 0.72 K/uL (1.2-3.4); MEAN CELL VOLUME 92.1 fL (80-100); MEAN CORPUSCULAR HEMOGLOBIN 31.9 pg (25-34); MEAN CORPUSCULAR HGB CONC 34.6 g/dl (32-36); MEAN PLATELET VOLUME 9.7 fL (7.4-10.4); MONO % 6.6 %; MONO ABS # 0.54 K/uL (0.11-0.59); NEUT % 83.9 %; NEUT ABS # 6.84 K/uL (1.4-6.5); PLATELET COUNT 210 K/uL (130-400); RED CELL DISTRIBUTION WIDTH CV 13.9 % (11.5-14.5); RED CELL DISTRIBUTION WIDTH SD 46.3 fL (36.4-46.3); WHITE BLOOD COUNT 8.16 K/uL (4.8-10.8)
[2017-10-09 04:59] LABS: ALBUMIN 3.7 gm/dl (3.4-5.0); ALT/SGPT 43 U/L (12-78); AST/SGOT 15 U/L (15-37); BLOOD UREA NITROGEN 25 mg/dl (7-18); CALCIUM 9.3 mg/dl (8.5-10.1); CARBON DIOXIDE 29 mmol/L (21-32); CREATININE 1.24 mg/dl (0.60-1.40); GLUCOSE 179 mg/dl (70-99); POTASSIUM 4.2 mmol/L (3.5-5.1); SODIUM 133 mmol/L (136-145)
[2017-10-09 05:03] LABS: ALKALINE PHOSPHATASE 98 U/L (45-117); TOTAL PROTEIN 7.5 gm/dl (6.4-8.2)
[2017-10-09] MEDS ORDERED: METOPROLOL TARTRATE 1 MG/ML VIAL IV STA ×2 (05:12→06:00)
[2017-10-09] MEDS ORDERED: KETOROLAC TROMETHAMINE 30 MG/ML VIAL IV STA (05:12)
[2017-10-09] MEDS ORDERED: LABETALOL HCL IV 5 MG/ML 20ML IV STA (06:27)
--- NOTE | 2017-10-09 07:02 | DIAGNOSTIC IMAGING REPORT ---
CT SCAN OF THE BRAIN WITHOUT IV CONTRAST CLINICAL HISTORY: Headache. COMPARISON STUDY: No priors. TECHNIQUE: Unenhanced axial CT scan of the brain is performed from the vertex to the skull base. A dose lowering technique was utilized adhering to the principles of ALARA. 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 There are age-related involutional changes noting mild subcortical and periventricular microangiopathic change. There is no mass effect or evidence of acute territorial ischemia by CT criteria. 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 Eason-white matter is preserved. No extra-axial fluid collection is seen. Ventricles, sulci, cisterns: Prominent secondary to involutional change. Intracranial vasculature: There is atherosclerotic calcification of the cavernous carotid arteries. Calvarium: Unremarkable. Sinuses and mastoids: The visualized paranasal sinuses are clear. The mastoid air cells are well pneumatized. Orbits: The bony orbits are grossly intact. There are bilateral ocular lens implants. IMPRESSION: 1. 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 2. There is no parenchymal hematoma, mass effect, or evidence of acute territorial ischemia by CT criteria. Electronically signed by: Jorje Echavarria M.D. 10/09/2017 7:01 AM Dictated Date/Time: 10/09/2017 6:58 AM
[2017-10-09 07:26] VITALS: BP 203/106; PULSE 85; O2SAT 98
--- NOTE | 2017-10-09 07:31 | EMERGENCY ROOM VISIT NOTE ---
History Report prepared by Rena: Ganga Tubbs Under the Supervision of: Dr. Kayla Hankins D.O. First contact with patient: 03:50 Chief Complaint: HEADACHE Stated Complaint: HELMS History of Present Illness The patient is an 87 year old male who presents to the Emergency Room with complaints of a persistent headache that began last night at 2130, 6.5 hours ago. He still has the headache currently, and rates his pain as a 5/10 in severity. The patient was in the hospital all last week, and was discharged on Sunday, 3 days ago. This inpatient stay was for urinary retention. The at bedside notes that the patient had had a suprapubic catheter placed for over a year. This was removed and a [place] was placed two weeks ago. The is also concerned over the patient's elevated blood pressure. The patient did take an Oxycodone tablet prior to arrival, in two separate 1/2 tablet dosages. He also took 2 Clonidine tablets for his hypertensive pressures. The patient does not normally take blood pressure medication, and the Clonidine were his 's prescription. He denies any abdominal pain. Source of History: patient, spouse/significant other Onset: 6.5 hours PRECISION HONER Position: head Symptom Intensity: 5/10 currently Quality: other (Headache) Timing: other (Persistent) Associated Symptoms: No abdominal pain Review of Systems See HPI for pertinent positives & negatives. A total of 10 systems reviewed and were otherwise negative. Past Medical & Surgical Medical Problems: (1) Abscess (2) CAD (coronary artery disease) (3) Chest pain (4) Constipation (5) Diabetes (6) PNA (pneumonia) (7) PNA (pneumonia) (8) PNA (pneumonia) (9) Skin abscess (10) UTI (urinary tract infection) Family History Family History omitted secondary to age. Social History Smoking Status: Former Smoker Alcohol Use: none Drug Use: none Marital Status: Housing Status: lives with family Occupation Status: retired Current/Historical Medications Scheduled Acetaminophen (Tylenol), 500 MG PO PRN Amitriptyline Hcl (Elavil), 50 MG PO HS Aspirin (Aspir-81), 81 MG PO QPM Atenolol (Tenormin), 25 MG PO QAM Clonidine HCl (Clonidine HCl), 0.05 MG PO ONE TIME DOSE Dutasteride-Tamsulosin Hcl (Jennifer), 1 CAP PO HS Finasteride (Proscar), 5 MG PO QPM Home O2 Therapy (Oxygen), 2 LITERS NA PRN Isosorbide Mononitrate Ext Rel (Imdur Ext Rel), 30 MG PO QAM Metformin Hcl (Glucophage), 500 MG PO BID Multivitamin (Multivitamin), 1 TAB PO HS Omeprazole (Prilosec), 20 MG PO HS Polyethylene Glycol 3350 (Miralax), 17 GM PO DAILY Scheduled PRN Oxycodone Ir (Roxicodone Ir), 2.5 MG PO Q6H PRN for Pain Allergies Coded Allergies: No Known Allergies (Verified , 10/09/17) Physical Exam Vital Signs Date Time Temp Pulse Resp B/P (MAP) Pulse Ox O2 Delivery O2 Flow Rate FiO2 10/09/17 06:45 79 20 175/88 95 Nasal Cannula 2.0 10/09/17 06:41 79 179/87 97 Nasal Cannula 2.0 10/09/17 06:30 77 16 193/94 100 Nasal Cannula 2.0 10/09/17 06:25 76 20 206/86 92 Room Air 10/09/17 06:15 75 16 192/103 95 Room Air 10/09/17 06:06 80 181/83 10/09/17 06:01 78 181/83 10/09/17 05:45 82 16 188/87 94 Room Air 10/09/17 05:38 75 20 189/88 92 Room Air 10/09/17 05:30 84 209/102 10/09/17 05:00 82 22 209/102 94 10/09/17 04:30 83 26 220/101 95 10/09/17 04:00 80 21 213/104 94 10/09/17 03:45 37.2 84 18 218/106 93 Room Air Physical Exam HEENT: Head - normocephalic and atraumatic Pupils are equal, round, and reactive to light. Extraocular eye muscles are intact, and sclera are anicteric. Nose - moist nasal mucosa without discharge. Mouth - moist buccal mucosa. Oropharynx is nonerythematous and there is no tonsillar exudate or edema noted. Neck: Supple; no JVD, nuchal rigidity, cervical lymphadenopathy. Heart: Regular rate and rhythm. There is a normal S1 and S2 with no murmurs, clicks, or gallops appreciated. Lungs: Clear to auscultation bilaterally with no wheezes, rales, or rhonchi. Abdomen: Soft, completely nontender, nondistended, with good bowel sounds. There are no palpable pulsatile masses or hepatosplenomegaly. There is no guarding, rigidity, or rebound noted. Extremities: No evidence of cyanosis, clubbing, or edema. There are easily palpable peripheral pulses. Skin: warm and dry with good turgor and no rashes. Medical Decision & Procedures ER Provider Diagnostic Interpretation: Radiology results as stated below per my review and the radiologist's interpretation: CT HEAD: There is intraventricular hemorrhage suggested in the occipital horns of the lateral ventricles (series 2: image 14). No evidence for hydrocephalus. Recommend short-term interval follow-up to ensure stability over time. Mild cerebral atrophy. No midline shift or mass effect. No extra-axial fluid suggested. The paranasal sinuses and mastoid air cells are unremarkable. Laboratory Results 10/09/17 04:30 Red Blood Count 4.20, Mean Corpuscular Volume 92.1, Mean Corpuscular Hemoglobin 31.9, Mean Corpuscular Hemoglobin Concent 34.6, Mean Platelet Volume 9.7, Neutrophils (%) (Auto) 83.9, Lymphocytes (%) (Auto) 8.8, Monocytes (%) (Auto) 6.6, Eosinophils (%) (Auto) 0.2, Basophils (%) (Auto) 0.1, Neutrophils # (Auto) 6.84, Lymphocytes # (Auto) 0.72, Monocytes # (Auto) 0.54, Eosinophils # (Auto) 0.02, Basophils # (Auto) 0.01 10/09/17 04:30 Test 10/09/17 04:30 White Blood Count 8.16 K/uL (4.8-10.8) Red Blood Count 4.20 M/uL (4.7-6.1) Hemoglobin 13.4 g/dL (14.0-18.0) Hematocrit 38.7 % (42-52) Mean Corpuscular Volume 92.1 fL (80-100) Mean Corpuscular Hemoglobin 31.9 pg (25-34) Mean Corpuscular Hemoglobin Concent 34.6 g/dl (32-36) Platelet Count 210 K/uL (130-400) Mean Platelet Volume 9.7 fL (7.4-10.4) Neutrophils (%) (Auto) 83.9 % Lymphocytes (%) (Auto) 8.8 % Monocytes (%) (Auto) 6.6 % Eosinophils (%) (Auto) 0.2 % Basophils (%) (Auto) 0.1 % Neutrophils # (Auto) 6.84 K/uL (1.4-6.5) Lymphocytes # (Auto) 0.72 K/uL (1.2-3.4) Monocytes # (Auto) 0.54 K/uL (0.11-0.59) Eosinophils # (Auto) 0.02 K/uL (0-0.5) Basophils # (Auto) 0.01 K/uL (0-0.2) RDW Standard Deviation 46.3 fL (36.4-46.3) RDW Coefficient of Variation 13.9 % (11.5-14.5) Immature Granulocyte % (Auto) 0.4 % Immature Granulocyte # (Auto) 0.03 K/uL (0.00-0.02) Anion Gap 4.0 mmol/L (3-11) Est Creatinine Clear Calc Drug Dose 36.5 ml/min Estimated GFR () 60.2 Estimated GFR (Non- 51.9 BUN/Creatinine Ratio 20.1 (10-20) Calcium Level 9.3 mg/dl (8.5-10.1) Total Bilirubin 0.5 mg/dl (0.2-1) Aspartate Amino Transf (AST/SGOT) 15 U/L (15-37) Alanine Aminotransferase (ALT/SGPT) 43 U/L (12-78) Alkaline Phosphatase 98 U/L (45-117) Troponin I < 0.015 ng/ml (0-0.045) Total Protein 7.5 gm/dl (6.4-8.2) Albumin 3.7 gm/dl (3.4-5.0) Globulin 3.8 gm/dl (2.5-4.0) Albumin/Globulin Ratio 1.0 (0.9-2) Laboratory results per my review. Medications Administered Medications (Trade) Dose Ordered Sig/Taylor Route Start Time Stop Time Status Last Admin Dose Admin Hydromorphone HCl (Dilaudid Inj) 0.5 mg NOW STAT IV 10/09/17 04:09 10/09/17 04:11 DC 10/09/17 04:29 0.5 MG Ondansetron HCl (Zofran Inj) 4 mg NOW STAT IV 10/09/17 04:37 10/09/17 04:38 DC 10/09/17 04:40 4 MG Metoprolol Tartrate (Lopressor Iv) 5 mg NOW STAT IV 10/09/17 05:12 10/09/17 05:14 DC 10/09/17 05:30 5 MG Hydromorphone HCl (Dilaudid Inj) 0.5 mg NOW STAT IV 10/09/17 05:28 10/09/17 05:29 DC 10/09/17 05:32 0.5 MG Metoprolol Tartrate (Lopressor Iv) 5 mg NOW STAT IV 10/09/17 06:00 10/09/17 06:01 DC 10/09/17 06:06 5 MG Labetalol HCl (Normodyne IV) 20 mg NOW STAT IV 10/09/17 06:27 10/09/17 06:28 DC 10/09/17 06:38 20 MG Procedure Medications Ordered: Dilaudid, Zofran, Lopressor, Toradol, Labetalol ECG Per My Interpretation Indication: other (Hypertension) Rate (beats per minute): 76 Rhythm: normal sinus Findings: no acute ischemic change, no ectopy ED Course 0357: Past medical records reviewed. The patient was evaluated in room A2. A complete history and physical exam was performed. A 12-lead EKG was obtained as described above. Laboratory studies were drawn as above. 0409: Ordered Dilaudid 0.5 mg IV. The patient went for CT scan of the brain as described above. 0437: Ordered Zofran 4 mg IV. 0512: Ordered Lopressor 5 mg IV. 0514: [facility] called to inform me of a brain bleed on the patient's CT scan at this time. 0528: The patient had persistent pain in his head. I ordered Dilaudid 0.5 mg IV. His blood pressure remained elevated and he was given a second dose of IV Lopressor. 0529: I discussed the case with Dr. Brendan [facility]. [facility]. [facility]: I discussed the [facility] He would like me to talk with an diversity specialist. 0543: I discussed the case with Campbell Singleton [facility] DUNG He will accept the patient for transfer to the [facility] ICU. 0627: The patient's blood pressure elevated again and I ordered IV Labetalol HCl 20 mg IV. 0700: The patient is more comfortable at this time. His blood pressure is controlled. He will be transferred to [facility] by ALS. Medical Decision The patient is an 87 year old male who presents to the emergency department for a headache. Differential Diagnosis includes; hypertensive emergency, sciatica, intracranial hemorrhage, intracranial mass. Laboratory results were reviewed and show; normal white count, stable hemoglobin and hematocrit, normal LFTs, glucose of 179, BUN of 25, creatinine of 1.2. This is an 87-year-old male patient presents to the emergency department with a severe headache and hypertension. Patient has been under increased stress and anxiety secondary to the chronic sciatic pain that he is suffering. He developed a headache last evening and his took the blood pressure noting that it was elevated. She administered her own clonidine to the patient along with a Tylenol, aspirin and ibuprofen for the pain. The patient's headache persisted and he was agreeable to come to the hospital. CT scan shows evidence of intraventricular blood. Patient's blood pressure was controlled with Lopressor and labetalol. He is comfortable after receiving IV Dilaudid. We discussed the case with neurosurgery at [facility] along with the hospitalist and staff from the ICU. He will be transported to their ICU by ALS. Medication Reconcilliation Current Medication List: was personally reviewed by me Blood Pressure Screening Patient's blood pressure: Elevated blood pressure Referred to [facility] Consults Time Called: [phone] Consulting Physician: Dr. Brendan Borges [facility] Returned Call: [phone] I discussed the case with Dr. Brendan Borges [facility]. He would like the patient admitted to the [facility] service. Additional Consults: Time Called: [phone] Consulted Physician: Campbell Borges [facility] DUNG Returned Call: [phone] Additional Comments: I discussed the case with Campbell Borges [facility] CRNP. He will accept the patient for transfer to the [facility] ICU. Impression Primary Impression: Intraventricular hemorrhage Additional Impression: Hypertension Critical Care I have personally spent greater than 45 minutes of critical care time in the direct management of this patient. This includes bedside care, interpretation of diagnostic studies, and testing, discussion with consultants, patient, and family members, and other required patient management activities. This 45 minutes is in excess of all separately billable procedures. Scribe Attestation The scribe's documentation has been prepared under my direction and personally reviewed by me in its entirety. I confirm that the note above accurately reflects all work, treatment, procedures, and medical decision making performed by me. Departure Information Dispostion Transfer Acute Care Facility ([facility] ) Referrals Pro,Luke Amaro M.D. (PCP) Patient Instructions My [facility] Problem Qualifiers Additional Impression: Hypertension Hypertension type: unspecified Qualified Codes: I10 - Essential (primary) hypertension
== END 2017-10-09 07:24 | disposition short-term general hospital (02) ==
LOC: C.EDB 03:44 → C.EDA 07:24
DX: I61.5 Nontraumatic intracerebral hemorrhage, intraventricular (principal); I10 Essential (primary) hypertension; I25.10 Atherosclerotic heart disease of native coronary artery without angina pectoris; E11.9 Type 2 diabetes mellitus without complications; K59.00 Constipation, unspecified; Z96.0 Presence of urogenital implants; Z79.84 Long term (current) use of oral hypoglycemic drugs; Z79.82 Long term (current) use of aspirin; Z79.899 Other long term (current) drug therapy; Z87.891 Personal history of nicotine dependence